=== PATIENT | female | born 1995 | race Caucasian/White ===

== ENCOUNTER 2016-11-12 20:46 | Emergency (ER) | payer MEDICAID ==
[~2016-11-12 20:46] MED LIST: CEPH-460 PO
[2016-11-12] MEDS ORDERED: LACTATED RINGER'S 1000 ML INJ 1,000 ML IV ONE (21:30)
[2016-11-12 22:11] LABS: AUTOMATED NEUTROPHIL # 9.5 TH/MM3 (1.8-7.7); BASOPHIL # 0.1 TH/MM3 (0-0.2); BASOPHIL % 0.4 % (0.0-2.0); EOSINOPHIL # 0.1 TH/MM3 (0-0.4); HEMATOCRIT 26.3 % (35.0-46.0); LYMPH % 18.2 % (9.0-44.0); LYMPHOCYTE # 2.4 TH/MM3 (1.0-4.8); MEAN CELL VOLUME 81.5 FL (80.0-100.0); MEAN CORPUSCULAR HEMOGLOBIN 26.9 PG (27.0-34.0); MEAN CORPUSCULAR HGB CONC 33.1 % (32.0-36.0); MONO % 8.4 % (0.0-8.0); PLATELET COUNT 213 TH/MM3 (150-450); RED BLOOD COUNT 3.22 MIL/MM3 (4.00-5.30); WHITE BLOOD COUNT 13.2 TH/MM3 (4.0-11.0)
[2016-11-12 22:12] LABS: HEMO FLAGS AUTO DIFF
[2016-11-12] MEDS ORDERED: FERR325T PO (22:28)
[2016-11-12 22:31] LABS: BACTERIA, URINE OCC /hpf; BLOOD, URINE NEG (NEG); COMMENT (UR) CULT NOT INDICATED; CULTURE IF INDICATED CULT NOT INDICATED; GLUCOSE,URINE NEG (NEG); KETONE, URINE NEG (NEG); NITRITE,URINE NEG (NEG); PH, URINE 7.5 (5.0-8.5); SQUAMOUS EPITHELIAL CELL URINE 10 /hpf (0-5); URINE COLOR YELLOW (YELLW/STRAW)
[2016-11-12 22:38] LABS: PLATELET ESTIMATE SMEAR NORMAL (NORMAL); PLATELET MORPHOLOGY NORMAL (NORMAL); SCAN/DIFF AUTO DIFF CONFIRMED
--- NOTE | 2016-11-12 22:38 | PD ---
HPI Chief Complaint Viral symptoms with diarrhea Date Seen: Nov 12, 2016 Travel History International Travel<30 Days: No Contact w/Intl Traveler<30Days: No Known Affected Area: No History of Present Illness HPI Ms. Llamas is a 21-year-old at 35/5 presenting to the OB ED with daily episodes of diarrhea and viral symptoms. She states that she saw her PCP, Dr. Franco Krishnamurthy, on 11/10/16, for her routine OB check. At that time a urine dipstick was performed for increased urination and showed leukocyte esterase suggesting possible UTI. Keflex 500 mg twice a day was prescribed, and the patient has been compliant. After starting her medication she's had daily episodes of nonbloody diarrhea. When asked about her oral hydration she believes that she has been very thirsty over these past few days, but has been "drinking 5 gallons a day." She also complains of upper respiratory symptoms with one subjective fever. At her clinic visit on Thursday it was recommended that she used honey for her sore throat and cough. For her subjective fever and mild headache she took Tylenol once, but believes it had minimal effect on her fever. She endorses good movement without loss of fluid, dysuria, discharge, or bleeding. She has no other complaints and denies any chest pain, shortness of breath, NVD, or calf tenderness. 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: [employer] Denies: smoking, drugs Has stopped alcohol Alcohol Use: No Tobacco Use: No Substance Abuse: No Allergies-Medications (Allergen,Severity, Reaction): Coded Allergies: No Known Allergies (Verified , 11/10/16) Home Meds Active Scripts Ferrous Sulfate 325 Mg [id number] Mg PO DAILY #30 TAB Ref 0 Prov:Arnaldo Perez MD R1 11/12/16 Cephalexin (Keflex)500 Mg [id number] Mg PO Q12H #14 CAP Ref 0 Prov:Franco Krishnamurthy MD R2 11/10/16 Discontinued Scripts Cephalexin (Keflex)500 Mg [id number] Mg PO Q12H #14 CAP Ref 0 Prov:Gris Kincaid MD R2 10/12/16 Review of Systems General / Constitutional: Fever (subjective) Eyes: No: Blurred Vision, Visual changes HENT: Headaches (mild) Cardiovascular: No: Chest Pain or Discomfort, Palpitations Respiratory: Cough, No: Short of Breath Gastrointestinal: Diarrhea, Indigestion, No: Nausea, Vomiting Genitourinary: No: Dysuria, Hematuria, Discharge, Vaginal Bleeding Musculoskeletal: Pain (mild low back pain) Skin: No Rash Neurologic: No: Weakness Psychiatric: No: Substance Abuse Endocrine: Polydipsia, Polyuria Hematologic/Lymphatic: No Lymph Node Enlargement Physical Exam Narrative GENERAL: Well-nourished, well-developed patient. SKIN: Warm and dry. HEAD: Normocephalic and atraumatic. EYES: No scleral icterus. No injection or drainage. ENT: No nasal drainage noted. Mucous membranes pink. Airway patent. NECK: Supple, trachea midline. No JVD. CARDIOVASCULAR: Regular rate and rhythm without murmurs, gallops, or rubs. RESPIRATORY: Breath sounds equal bilaterally. No accessory muscle use. BREASTS: Bilateral exam showed no masses , no retractions, no nipple discharge. ABDOMEN/GI: Abdomen soft, non-tender, bowel sounds present, no rebound, no guarding Gravid to 35 weeks size GENITOURINARY: External Genitalia: intact and normal in appearance Cervix: Posterior Dilatation: Posterior Effacement: 0% Station:-3 Membranes: Intact Uterine Contractions: None FHT's: Category: 1 Baseline: 145 Reactive: + Variability: Moderate Decels: 0 EXTREMITIES: No cyanosis or edema. BACK: Nontender without obvious deformity. No CVA tenderness. NEUROLOGICAL: Awake and alert. Motor and sensory grossly within normal limits. Five out of 5 muscle strength in all muscle groups. Normal speech. Data Data Vital Signs Reviewed: Yes Orders Vital Signs (Adult) .ON ADMISSION (11/12/16 21:25) ^ Labor Status (11/12/16 21:25) Urinalysis - C+S If Indicated (11/12/16 21:25) ^ Hydration (11/12/16 21:25) Lactated Ringer's 1000 Ml Inj (Lr 1000 M (11/12/16 21:30) [facility] Medical Record Reviewed: Yes Plan Ms. Llamas is a 21-year-old at 35/5 presenting to the OB ED with daily episodes of diarrhea and viral symptoms 1. IUP at 35w - Continue routine antepartum care - Category 1 tracing, reassuring - Encouraged oral hydration 2. UTI -Patient with positive leukocyte esterase in clinic on 11/10/16 currently being treated with Keflex BID 500mg, Previous UTI treated x1 with Keflex -UA: Large leukocyte esterase, occasional bacteria -CBC order to be completed from clinic orders: WBC 13.2, H/H 8.7/26.3, 213 3. Upper Respiratory Symptoms -Patient with sore throat, mild cough, and one subjective fever since 11/10/16, Tylenol x1; likely viral component -Encouraged oral hydration -Encouraged patient to document possible fevers and use of Tylenol for fevers > 101 4.Non-bloody Diarrhea with Mild Dehydration -Likely related to Keflex administration -Encouraged PO hydration -1L LR bolus given once in OB ED 5. Anemia in -CBC order to be completed from clinic orders: WBC 13.2, H/H 8.7/26.3, 213 -Prescribed Ferrous sulfate 325mg QD Discharge: Patient to be discharged home after fluid hydration. Patient to continue Keflex and follow up with Dr. Krishnamurthy next week in clinic. Patient educated on signs of labor and when to seek further evaluation. SDW: Dr. Celeste DW: Dr. Osorio WDW: Dr. Krishnamurthy Diagnosis Diagnosis: Primary Impression: 35 weeks gestation of Additional Impression: UTI (urinary tract infection) Disposition: 01 DISCHARGE HOME Condition: Stable Scripts Ferrous Sulfate 325 Mg [id number] Mg PO DAILY #30 TAB Ref 0 Prov:Arnaldo Perez MD R1 11/12/16 Referrals: Franco Krishnamurthy MD R2 1 week Arnaldo Perez MD R1 Nov 12, 2016 22:38
== END 2016-11-12 22:45 | disposition home or self-care (01) ==
LOC: HOBED 20:46
DX: O23.43 Unspecified infection of urinary tract in pregnancy, third trimester (principal); Z3A.35 35 weeks gestation of pregnancy
CPT/HCPCS: 59025; 81001; 85025; 96360; 99283; J7120

== ENCOUNTER 2016-11-15 13:55 | Emergency (ER) | payer MEDICAID ==
[~2016-11-15 13:55] MED LIST changes: +FERR325T PO
--- NOTE | 2016-11-15 14:50 | PD ---
HPI Chief Complaint Gush of fluid. Date Seen: Nov 15, 2016 (Gris Kincaid MD R2) Travel History International Travel<30 Days: No Contact w/Intl Traveler<30Days: No Known Affected Area: No (Gris Kincaid MD R2) History of Present Illness HPI Patient is a 21 year old at 36-1/7 weeks gestation who presents today for gush of fluid. Patient states that she had 3 big gushes of clear watery fluid yesterday and has been soaking through pads. She states that there was so much fluid that it leaked through her pants onto the chair. She has been having about 2-3 contractions every hour. No vaginal bleeding. Positive movement. She notes increasing pelvic pressure over the past day. She is currently being treated for a UTI with Keflex. care with Dr. Krishnamurthy. (Gris Kincaid MD R2) History Past Medical History Medical History: Denies Significant Hx (Gris Kincaid MD R2) Obstetric History Obstetric History s/p at term complicated by PIH, shoulder dystocia (Gris Kincaid MD R2) Past Surgical History Narrative Surgical Right arm surgery after fracture (Gris Kincaid MD R2) Family History Narrative Family History Grandmother- Depression (Gris Kincaid MD R2) Social History Alcohol Use: No Tobacco Use: No Substance Abuse: No (Gris Kincaid MD R2) Allergies-Medications (Allergen,Severity, Reaction): Coded Allergies: No Known Allergies (Verified , 11/10/16) Home Meds Active Scripts Ferrous Sulfate 325 Mg [id number] Mg PO DAILY #30 TAB Ref 0 Prov:Arnaldo Perez MD R1 11/12/16 Cephalexin (Keflex)500 Mg [id number] Mg PO Q12H #14 CAP Ref 0 Prov:Franco Krishnamurthy MD R2 11/10/16 Review of Systems Except as stated in HPI: all other systems reviewed are Neg General / Constitutional: No: Fever, Chills Eyes: No: Blurred Vision HENT: No: Headaches Cardiovascular: No: Chest Pain or Discomfort Respiratory: No: Short of Breath Gastrointestinal: No: Nausea, Vomiting, Abdominal Pain Genitourinary: Hematuria (pink urine this AM), Pelvic Pain, Discharge, No: Dysuria, Vaginal Bleeding Musculoskeletal: No: Edema Skin: No Rash Neurologic: No: Headache Psychiatric: No: Substance Abuse (Gris Kincaid MD R2) Physical Exam Narrative GENERAL: Well-nourished, well-developed patient. SKIN: Warm and dry. HEAD: Normocephalic and atraumatic. EYES: No scleral icterus. No injection or drainage. ENT: No nasal drainage noted. Mucous membranes pink. Airway patent. NECK: Supple, trachea midline. No JVD. CARDIOVASCULAR: Regular rate and rhythm without murmurs, gallops, or rubs. RESPIRATORY: Breath sounds equal bilaterally. No accessory muscle use. ABDOMEN/GI: Abdomen soft, non-tender, bowel sounds present, no rebound, no guarding Gravid to 36 weeks size GENITOURINARY: External Genitalia: intact and normal in appearance BUS glands: normal Cervix: posterior Dilatation: 2 Effacement: 0% Station: -3 Presentation: vertex Membranes: intact Uterine Contractions: irregular FHT's: Category: I Baseline: 150 Reactive: + Variability: moderate Decels: none EXTREMITIES: No cyanosis or edema. BACK: Nontender without obvious deformity. No CVA tenderness. NEUROLOGICAL: Awake and alert. Motor and sensory grossly within normal limits. Normal speech. (Gris Kinacid MD R2) Data Data Vital Signs Reviewed: Yes (Gris Kincaid MD R2) MDM Medical Record Reviewed: Yes Narrative Course / MDM Patient is a 21 year old at 36-1/7 weeks gestation. 1. IUP- Category I tracing, reassuring. Continue routine obstetric care. 2. Possible ROM- Amnisure negative, cervical exam 2/0/-3, membrane palpable. 3. Encourage oral hydration. Discharge to home. Follow-up with Dr. Krishnamurthy. dw Dr. Lynn (Gris Kincaid MD R2) Diagnosis Diagnosis: Primary Impression: 36 weeks gestation of Additional Impression: False labor, antepartum Disposition: 01 DISCHARGE HOME Condition: Stable Attestation Patient seen and examined with the resident under direct supervision, I agree with the assessment and plan. (Johnson Lynn MD) Gris Kincaid MD R2 Nov 15, 2016 14:50 Johnson Lynn MD Nov 16, 2016 08:02
== END 2016-11-15 15:12 | disposition home or self-care (01) ==
LOC: HOBED 13:55
DX: O47.03 False labor before 37 completed weeks of gestation, third trimester (principal); Z3A.36 36 weeks gestation of pregnancy
CPT/HCPCS: 84112; 99284

== ENCOUNTER 2016-11-26 02:49 | Inpatient (IN) | payer MEDICAID ==
[2016-11-26] VITALS (8 sets, daily range): BP systolic 112–126; BP diastolic 46–64; PULSE 74–103; RESP 18–20; TEMP 97.8
[~2016-11-26 02:49] MED LIST changes: -CEPH-460 PO
[2016-11-26] MEDS ORDERED: LACTATED RINGER'S 1000 ML INJ 1,000 ML IV ONE (03:30)
[2016-11-26] MEDS ORDERED: SODIUM CHLORIDE 0.9% FLUSH 5 ML FLUSH IVF PRN (03:30)
[2016-11-26 04:19] LABS: BACTERIA, URINE RARE /hpf; BLOOD, URINE NEG (NEG); GLUCOSE,URINE NEG (NEG); KETONE, URINE NEG (NEG); NITRITE,URINE NEG (NEG); SQUAMOUS EPITHELIAL CELL URINE 8 /hpf (0-5); TRANSITIONAL EPI CELLS, URINE <1 /hpf; URINE COLOR LIGHT-YELLOW (YELLW/STRAW)
[2016-11-26 04:24] LABS: COMMENT (UR) CULT NOT INDICATED; CULTURE IF INDICATED CULT NOT INDICATED
--- NOTE | 2016-11-26 04:28 | PD ---
HPI Chief Complaint Contractions Date Seen: Nov 26, 2016 (Arnaldo Perez MD R1) Travel History International Travel<30 Days: No Contact w/Intl Traveler<30Days: No Known Affected Area: No (Arnaldo Perez MD R1) History of Present Illness HPI Ms. Llamas is a 21 y/o at 37/5 presenting with contractions. She states that tonight at approximately 2300 she started experiencing contractions that overtime grew closer together. She endorses good movement with her daily kick counts. She denies any smith of fluid, dysuria, or vaginal bleeding. She has had a thin, yellow/green vaginal discharge over the last 2 days. She has not had intercourse in over 2 months. Earlier today she had one episode of nonbloody diarrhea without ABD complaints. Other jaime she does not have any complaints, and denies any fevers, chills, blurry vision, chest pain, SOB, N/V, or calf tenderness/edema. (Arnaldo Perez MD R1) History Past Medical History Narrative Medical GERD (Arnaldo Perez MD R1) Obstetric History Obstetric History 1 - at term complicated by PIH, delivery complicated by shoulder dystocia ( Arnaldo Perez MD R1) Past Surgical History Narrative Surgical R arm fixation s/p fracture (Arnaldo Perez MD) Family History Narrative Family History Grandmother - depression (Arnaldo Perez MD R1) Social History Narrative Social History Denies any alcohol, tobacco, illicit drugs, herpes, STI, or HIV infection. ( Arnaldo Perez MD R1) Allergies-Medications (Allergen,Severity, Reaction): Coded Allergies: No Known Allergies (Verified , 11/19/16) Home Meds Active Scripts Cephalexin (Keflex)500 Mg Shs232 Mg PO Q12H #14 CAP Ref 0 Prov:Singh Mariano MD R1 11/26/16 Metronidazole (Flagyl)500 Mg [id number] Mg PO BID #14 TAB Ref 0 Prov:Singh Mariano MD R1 11/26/16 Ferrous Sulfate 325 Mg [id number] Mg PO DAILY #30 TAB Ref 0 Prov:Arnaldo Perez MD 11/12/16 Review of Systems General / Constitutional: No: Fever HENT: No: Headaches Cardiovascular: No: Chest Pain or Discomfort Respiratory: No: Cough, Short of Breath Gastrointestinal: Diarrhea, No: Nausea, Vomiting Genitourinary: Discharge, No: Dysuria, Vaginal Bleeding Musculoskeletal: No: Weakness Skin: No Rash Neurologic: No: Weakness Psychiatric: No: Substance Abuse Endocrine: No: Polydipsia Hematologic/Lymphatic: No Lymph Node Enlargement (Arnaldo Perez MD R1) Physical Exam Narrative GENERAL: Well-nourished, well-developed patient. SKIN: Warm and dry. HEAD: Normocephalic and atraumatic. EYES: No scleral icterus. No injection or drainage. ENT: No nasal drainage noted. Mucous membranes pink. Airway patent. NECK: Supple, trachea midline. No JVD. CARDIOVASCULAR: Regular rate and rhythm without murmurs, gallops, or rubs. RESPIRATORY: Breath sounds equal bilaterally. No accessory muscle use. ABDOMEN/GI: Abdomen soft, non-tender, bowel sounds present, no rebound, no guarding Gravid to 37 weeks size GENITOURINARY: External Genitalia: intact and normal in appearance Cervix: Posterior Dilatation: 2cm Effacement: 70% Station: -2 Presentation: Vertex Membranes: Intact Uterine Contractions: Q2m FHT's: Category: 1 Baseline: 150 Reactive: + Variability: Moderate Decels: None Speculum: 2cm dilated cervix. Cervix is erythematous with yellow/green thin discharge coming from the os without signs of hemorrhage. Vaginal vault with similar discharge. EXTREMITIES: No cyanosis or edema. BACK: Nontender without obvious deformity. No CVA tenderness. NEUROLOGICAL: Awake and alert. Motor and sensory grossly within normal limits. Five out of 5 muscle strength in all muscle groups. Normal speech. (Arnaldo Perez MD R1) Data Data Vital Signs Reviewed: Yes Orders Vital Signs (Adult) .ON ADMISSION (11/26/16 03:29) ^ Labor Status (11/26/16 03:29) Urinalysis - C+S If Indicated (11/26/16 03:29) ^ Hydration (11/26/16 03:29) Sodium Chloride 0.9% Flush (Ns Flush) (11/26/16 09:00) Sodium Chloride 0.9% Flush (Ns Flush) (11/26/16 03:30) Lactated Ringer's 1000 Ml Inj (Lr 1000 M (11/26/16 03:30) Wet Prep Profile (11/26/16 03:53) Gc And Chlamydia Pcr (11/26/16 03:53) Group B Beta Strep Scrn (Gbs) (11/26/16 03:53) (Arnaldo Perez MD R1) [facility] Medical Record Reviewed: Yes Plan Ms. Llamas is a 21 y/o at 37/5 presenting with contractions 1. IUP at 37/5 -Continue routine antepartum care -Category 1 tracing, reassuring -Encourage oral hydration -UA: pending 2. Contractions -Contractions every 2 minutes upon admission without rupture of membranes and no cervical dilation compared to prior ER admission -1L LR bolus, contractions have decreased in frequency, intensity, and duration since fluid administration initiated. 3. Discharge -Speculum exam: 2cm dilated cervix, erythematous without signs of hemorrhage. Yellow/green thin discharge in vaginal vault and coming from cervical os. -UA: Pending -Wet prep: Pending -Gonorrhea/Chlamydia: Pending 4. GBS Screen -Patient without prior GBS screen, will send culture to lab, culture obtained prior to speculum exam. DW: Dr. Lynn and Dr. Lopez Update at 0400: Wet Prep: Positive for Clue Cells without yeast or trichomonas. Treat with Flagyl 500mg BID for 7 days. UA: Moderate leukocyte esterase with rare bacteria. Treat with Keflex 500mg BID for 7 days. Gonorrhea/Chlamydia: Negative Contractions have increased to Q2m after initially decreasing in frequency and intensity. On cervical re-examination there was no change after 2 hours of observation. Discussed with Dr. Payan who recommends no further fluid. We will continue to observe her and will re-evaluate for cervical change. Update at 0630: On cervical re-examination, patient has progressed to 3cm dilated. OB team will plan to admit the patient for labor at this time. Orders have been placed. ( Arnaldo Perez MD R1) Diagnosis Diagnosis: Primary Impression: 37 weeks gestation of Additional Impression: Uterine contractions during Scripts Cephalexin (Keflex)500 Mg [id number] Mg PO Q12H #14 CAP Ref 0 Prov:Singh Mariano MD R1 11/26/16 Metronidazole (Flagyl)500 Mg [id number] Mg PO BID #14 TAB Ref 0 Prov:Singh Mariano MD R1 11/26/16 Attestation Patient seen and evaluated with the resident under direct supervision, I agree with the assessment and plan. (Johnson Lynn MD) Arnaldo Perez MD R1 Nov 26, 2016 04:28 Johnson Lynn MD Nov 28, 2016 11:20
[2016-11-26 06:01] LABS: CHLAMYDIA PCR NOT DETECTED (NOT DETECT); NEISSERIA PCR NOT DETECTED (NOT DETECT)
[2016-11-26] MEDS ORDERED: LACTATED RINGER'S 1000 ML INJ 1,000 ML IV PRN (07:11)
[2016-11-26] MEDS ORDERED: LACTATED RINGER'S 1000 ML INJ 1,000 ML IV SCH (07:11)
[2016-11-26] MEDS ORDERED: ONDANSETRON HCL 4 MG/2 ML VIAL IV PRN (07:15)
[2016-11-26] MEDS ORDERED: SODIUM CHLORID 0.9% 500 ML INJ 500 ML IV PRN (07:15)
[2016-11-26] MEDS ORDERED: LIDOCAINE HCL 1% 50 ML VIAL INFIL PRN (07:15)
[2016-11-26] MEDS ORDERED: CITRIC ACID-SODIUM CITRATE LIQ 30 ML UDC PO SCH (07:15)
[2016-11-26] MEDS ORDERED: LIDOCAINE HCL 1% 50 ML VIAL I-DERMAL PRN (07:15)
[2016-11-26] MEDS ORDERED: MINERAL OIL 10 ML VIAL TOPICAL PRN (07:15)
[2016-11-26] MEDS ORDERED: OXYTOCIN 30 UNITS-500ML PREMIX 500 ML IV ONE (07:15)
[2016-11-26] MEDS ORDERED: SODIUM CHLOR 0.9% 1000 ML INJ 1,000 ML IV PRN (07:31)
[2016-11-26 08:50] LABS: AUTOMATED NEUTROPHIL # 13.5 TH/MM3 (1.8-7.7); BASOPHIL # 0.1 TH/MM3 (0-0.2); BASOPHIL % 0.5 % (0.0-2.0); EOSINOPHIL # 0.1 TH/MM3 (0-0.4); EOSINOPHIL % 0.5 % (0.0-4.0); HEMATOCRIT 31.6 % (35.0-46.0); HEMO FLAGS DIFF FINAL; LYMPH % 15.9 % (9.0-44.0); LYMPHOCYTE # 2.7 TH/MM3 (1.0-4.8); MEAN CELL VOLUME 81.8 FL (80.0-100.0); MONO % 4.9 % (0.0-8.0); NEUT % 78.2 % (16.0-70.0); PLATELET COUNT 196 TH/MM3 (150-450); RED BLOOD COUNT 3.86 MIL/MM3 (4.00-5.30); RED CELL DISTRIBUTION WIDTH 15.2 % (11.6-17.2); WHITE BLOOD COUNT 17.2 TH/MM3 (4.0-11.0)
[2016-11-26] MEDS ORDERED: SODIUM CHLORIDE 0.9% FLUSH 5 ML FLUSH IVF SCH (09:00)
[2016-11-26] MEDS ORDERED: metroNIDAZOLE 500 MG TAB PO SCH (09:00)
--- NOTE | 2016-11-26 10:12 | HHI.HP ---
History & Physical H&P HPI Chief Complaint Contractions Date Seen: Nov 26, 2016 Travel History International Travel<30 Days: No Contact w/Intl Traveler<30Days: No Known Affected Area: No History of Present Illness HPI Ms. Llamas is a 21 y/o at 37/5 presenting with contractions. She states that tonight at approximately 2300 she started experiencing contractions that overtime grew closer together. She endorses good movement with her daily kick counts. She denies any smith of fluid, dysuria, or vaginal bleeding. She has had a thin, yellow/green vaginal discharge over the last 2 days. She has not had intercourse in over 2 months. Earlier today she had one episode of nonbloody diarrhea without ABD complaints. Other jaime she does not have any complaints, and denies any fevers, chills, blurry vision, chest pain, SOB, N/V, or calf tenderness/edema. History (Limited) History Past Medical History Narrative Medical GERD Obstetric History Obstetric History 1 - at term complicated by PIH, delivery complicated by shoulder dystocia Past Surgical History Narrative Surgical R arm fixation s/p fracture Family History Narrative Family History Grandmother - depression Social History Narrative Social History Denies any alcohol, tobacco, illicit drugs, herpes, STI, or HIV infection. Allergies-Medications Allergies-Medications (Allergen,Severity, Reaction): Coded Allergies: No Known Allergies (Verified , 11/19/16) Home Meds Active Scripts Ferrous Sulfate 325 Mg [id number] Mg PO DAILY #30 TAB Ref 0 Prov:Arnaldo Perez MD R1 11/12/16 Discontinued Scripts Cephalexin (Keflex)500 Mg Rqi192 Mg PO Q12H #14 CAP Ref 0 Prov:Franco Krishnamurthy MD R2 11/10/16 ROS Review of Systems General / Constitutional: No: Fever HENT: No: Headaches Cardiovascular: No: Chest Pain or Discomfort Respiratory: No: Cough, Short of Breath Gastrointestinal: Diarrhea, No: Nausea, Vomiting Genitourinary: Discharge, No: Dysuria, Vaginal Bleeding Musculoskeletal: No: Weakness Skin: No Rash Neurologic: No: Weakness Psychiatric: No: Substance Abuse Endocrine: No: Polydipsia Hematologic/Lymphatic: No Lymph Node Enlargement Physical Exam Physical Exam Narrative GENERAL: Well-nourished, well-developed patient. SKIN: Warm and dry. HEAD: Normocephalic and atraumatic. EYES: No scleral icterus. No injection or drainage. ENT: No nasal drainage noted. Mucous membranes pink. Airway patent. NECK: Supple, trachea midline. No JVD. CARDIOVASCULAR: Regular rate and rhythm without murmurs, gallops, or rubs. RESPIRATORY: Breath sounds equal bilaterally. No accessory muscle use. ABDOMEN/GI: Abdomen soft, non-tender, bowel sounds present, no rebound, no guarding Gravid to 37 weeks size GENITOURINARY: External Genitalia: intact and normal in appearance Cervix: Posterior Dilatation: 2cm Effacement: 70% Station: -2 Presentation: Vertex Membranes: Intact Uterine Contractions: Q2m FHT's: Category: 1 Baseline: 150 Reactive: + Variability: Moderate Decels: None Speculum: 2cm dilated cervix. Cervix is erythematous with yellow/green thin discharge coming from the os without signs of hemorrhage. Vaginal vault with similar discharge. EXTREMITIES: No cyanosis or edema. BACK: Nontender without obvious deformity. No CVA tenderness. NEUROLOGICAL: Awake and alert. Motor and sensory grossly within normal limits. Five out of 5 muscle strength in all muscle groups. Normal speech. Data Data Data Vital Signs Reviewed: Yes Orders Vital Signs (Adult) .ON ADMISSION (11/26/16 03:29) ^ Labor Status (11/26/16 03:29) Urinalysis - C+S If Indicated (11/26/16 03:29) ^ Hydration (11/26/16 03:29) Sodium Chloride 0.9% Flush (Ns Flush) (11/26/16 09:00) Sodium Chloride 0.9% Flush (Ns Flush) (11/26/16 03:30) Lactated Ringer's 1000 Ml Inj (Lr 1000 M (11/26/16 03:30) Wet Prep Profile (11/26/16 03:53) Gc And Chlamydia Pcr (11/26/16 03:53) Group B Beta Strep Scrn (Gbs) (11/26/16 03:53) MDM MDM Medical Record Reviewed: Yes Plan Ms. Llamas is a 21 y/o at 37/5 presenting with contractions 1. IUP at 37/5 -Continue routine antepartum care -Category 1 tracing, reassuring -Encourage oral hydration -UA: pending 2. Contractions -Contractions every 2 minutes upon admission without rupture of membranes and no cervical dilation compared to prior ER admission -1L LR bolus, contractions have decreased in frequency, intensity, and duration since fluid administration initiated. 3. Discharge -Speculum exam: 2cm dilated cervix, erythematous without signs of hemorrhage. Yellow/green thin discharge in vaginal vault and coming from cervical os. -UA: Pending -Wet prep: Pending -Gonorrhea/Chlamydia: Pending 4. GBS Screen -Patient without prior GBS screen, will send culture to lab, culture obtained prior to speculum exam. DW: Dr. Lynn and Dr. Lopez Update at 0400: Wet Prep: Positive for Clue Cells without yeast or trichomonas. Treat with Flagyl 500mg BID for 7 days. UA: Moderate leukocyte esterase with rare bacteria. Treat with Keflex 500mg BID for 7 days. Gonorrhea/Chlamydia: Negative Contractions have increased to Q2m after initially decreasing in frequency and intensity. On cervical re-examination there was no change after 2 hours of observation. Discussed with Dr. Payan who recommends no further fluid. We will continue to observe her and will re-evaluate for cervical change. Update at 0630: On cervical re-examination, patient has progressed to 3cm dilated. OB team will plan to admit the patient for labor at this time. Orders have been placed. Diagnosis Diagnosis: Primary Impression: 37 weeks gestation of Additional Impression: Uterine contractions during (Arnaldo Perez MD R1) Attestation Patient seen and examined with the resident under direct supervision and I agree with the assessment and plan. (Johnson Lynn MD) Arnaldo Perez MD R1 Nov 26, 2016 10:12 Johnson Lynn MD Nov 28, 2016 11:31
--- NOTE | 2016-11-26 15:01 | PD.OB.ANTE ---
Subjective Interval History Patient lying in bed. Feeling contractions. Some pain with contractions and some nausea. Cervical check: /-2 Antepartum ROS: Reports: movement normal, Contractions, Denies: New complaints, Loss of fluid, Vaginal bleeding, Other (Singh Mariano MD R1) Objective Vital Signs Vital Signs Date Time Temp Pulse Resp B/P Pulse Ox O2 Delivery O2 Flow Rate FiO2 11/26/16 13:30 74 112/46 11/26/16 13:00 76 117/55 11/26/16 12:44 103 126/49 11/26/16 12:21 90 118/63 11/26/16 08:56 97.8 11/26/16 05:30 18 11/26/16 05:25 86 119/64 11/26/16 05:00 20 Lab & Micro Results Test 11/26/16 11/26/16 11/26/16 03:20 03:50 08:00 Urine Color LIGHT-YELLOW Urine Turbidity HAZY Urine pH 7.0 Urine Specific [place] 1.010 Urine Protein NEG mg/dL Urine Glucose (UA) NEG mg/dL Urine Ketones NEG mg/dL Urine Occult Blood NEG Urine Nitrite NEG Urine Bilirubin NEG Urine Urobilinogen LESS THAN 2.0 MG/DL Urine Leukocyte Esterase MOD Urine RBC LESS THAN 1 /hpf Urine WBC 3 /hpf Urine Squamous Epithelial 8 /hpf Cells Urine Transitional Epithelial <1 /hpf Cells Urine Amorphous Sediment RARE Urine Bacteria RARE /hpf Microscopic Urinalysis Comment CULT NOT INDICATED Chlamydia trachomatis DNA NOT DETECTED (PCR) Neisseria gonorrhoeae DNA NOT DETECTED (PCR) Clue Cells (Wet Prep) PRESENT Vaginal Trichomonas (Wet Prep) NONE SEEN Vaginal Yeast (Wet Prep) NONE SEEN White Blood Count 17.2 TH/MM3 Red Blood Count 3.86 MIL/MM3 Hemoglobin 10.4 GM/DL Hematocrit 31.6 % Mean Corpuscular Volume 81.8 FL Mean Corpuscular Hemoglobin 27.0 PG Mean Corpuscular Hemoglobin 33.0 % Concent Red Cell Distribution Width 15.2 % Platelet Count 196 TH/MM3 Mean Platelet Volume 8.3 FL Neutrophils (%) (Auto) 78.2 % Lymphocytes (%) (Auto) 15.9 % Monocytes (%) (Auto) 4.9 % Eosinophils (%) (Auto) 0.5 % Basophils (%) (Auto) 0.5 % Neutrophils # (Auto) 13.5 TH/MM3 Lymphocytes # (Auto) 2.7 TH/MM3 Monocytes # (Auto) 0.8 TH/MM3 Eosinophils # (Auto) 0.1 TH/MM3 Basophils # (Auto) 0.1 TH/MM3 CBC Comment DIFF FINAL Differential Comment Blood Type A NEGATIVE Antibody Screen NEGATIVE Band and Hold Date/Time Procedure Status Source Growth 11/26/16 03:50 Cancelled Genital Vaginal Physical Exam GENERAL: Well-nourished, well-developed patient. CARDIOVASCULAR: Regular rate and rhythm without murmurs, gallops, or rubs. RESPIRATORY: Breath sounds equal bilaterally. No accessory muscle use. ABDOMEN/GI: Abdomen soft, non-tender. Gravid to 37w GENITOURINARY: External Genitalia: intact and normal in appearance Dilatation: 3 Effacement: 80 Station: -2 Presentation: vertex Membranes: intact Uterine Contractions: q5-7 minutes FHT's: Category: 1 Baseline: 140 Reactive: yes Variability: moderate Decels: none EXTREMITIES: No cyanosis or edema, non-tender, without signs of DVT. (Singh Mairano MD R1) Assessment and Plan Assessment and Plan 21 y/o at 37/5 Category 1 FHT, reassuring Cervical check 80/-2, unchanged 1. IUP at 37/5 -Continue routine antepartum care -Category 1 tracing, reassuring -Encourage oral hydration -GBS pending 2. UTI - UA + for moderate LE, rare bacteria, and 3 WBC - Urine culture pending - Script for Keflex 500mg BID x7 days 3. BV - Wet prep positive for clue cells - Script for Flagyl 500mg BID x7 days Discharge home and follow-up with OB, Dr. Krishnamurthy. Return to ED if signs of labor. (Singh Mariano MD R1) Assessment and Plan Patient seen and examined. Agree with resident's plan. All questions answered for patient. (Cat Staley MD) Singh Mariano MD R1 Nov 26, 2016 15:01 Cat Staley MD Nov 26, 2016 16:21 Singh Mariano MD R1 Nov 26, 2016 15:01
[2016-11-26] MEDS ORDERED: METR-1 PO (15:03)
[2016-11-26] MEDS ORDERED: CEPH-460 PO (15:03)
--- NOTE | 2016-11-26 15:04 | HHI.DCPOC ---
Discharge Care Plan Diagnosis: (1) 37 weeks gestation of (2) Uterine contractions during (3) False labor, antepartum Goals to Promote Your Health * To prevent worsening of your condition and complications * To maintain your health at the optimal level Directions to Meet Your Goals Take your medications as prescribed Follow your dietary instruction Follow activity as directed Keep your appointments as scheduled Take your immunizations and boosters as scheduled If your symptoms worsen call your PCP, if no PCP go to Urgent Care Center or Emergency Room Smoking is Dangerous to Your Health. Avoid second hand smoke Call the 24-hour hour crisis hotline for domestic abuse at Singh Mariano MD R1 Nov 26, 2016 15:04
== END 2016-11-26 15:59 | disposition home or self-care (01) | DRG 781 ==
LOC: HOBED 02:49 → H2EA 07:37
PROVIDERS: ADMIT Obstetrics & Gynecology; ATTEND Obstetrics & Gynecology
DX: O23.43 Unspecified infection of urinary tract in pregnancy, third trimester (principal); K21.9 Gastro-esophageal reflux disease without esophagitis; O99.613 Diseases of the digestive system complicating pregnancy, third trimester; O62.8 Other abnormalities of forces of labor; Z3A.37 37 weeks gestation of pregnancy
CPT/HCPCS: 81001; 85025; 86850; 86900; 86901; 87081; 87086; 87150; 87210; 87491; 87591; 96360; 96361; J3010; J7120

== ENCOUNTER 2016-12-10 11:25 | Inpatient (IN) | payer MEDICAID ==
[2016-12-10] VITALS (46 sets, daily range): BP systolic 69–132; BP diastolic 30–106; PULSE 82–213; RESP 16–20; TEMP 97.8–98.7
[~2016-12-10 11:25] MED LIST changes: +CEPH-460 PO; +METR-1 PO
--- NOTE | 2016-12-10 12:32 | PD ---
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 Nausea/vomiting associated with eating- most recently salad and banana. Pt reports hematuria with dime sized blood clots this AM. Of note she refuses to get the flu shot. Offered and declined. Para: 1 : 2 Miscarriage: 0 : 0 (Anna Bernabe MD R1) History Past Medical History Narrative Medical No history of pre-eclampsia (pt reported, per OBGYN "concern" to develop, no clinical syndrome or tx with Mg or antihypertensives) Obesity 30-34.9 Anemia (Anna Bernabe MD R1) Obstetric History Obstetric History Induced vaginal delivery at 40 weeks (Anna Bernabe MD R1) Past Surgical History Narrative Surgical Remote R elbow surgery involving pin placement (Anna Bernabe MD R1) Family History Narrative Family History Per EMR (Anna Bernabe MD R1) Social History Narrative Social History Student Alcohol Use: No Tobacco Use: No Substance Abuse: No (Anna Bernabe MD R1) Allergies-Medications (Allergen,Severity, Reaction): Coded Allergies: No Known Allergies (Verified , 12/04/16) Home Meds Active Scripts Ferrous Sulfate 325 Mg [id number] Mg PO DAILY #30 TAB Ref 0 Prov:Arnaldo Perez MD R1 11/12/16 Discontinued Scripts Cephalexin (Keflex)500 Mg Gor038 Mg PO Q12H #14 CAP Ref 0 Prov:Singh Mariano MD R1 11/26/16 Metronidazole (Flagyl)500 Mg [id number] Mg PO BID #14 TAB Ref 0 Prov:Singh Mariano MD R1 11/26/16 Review of Systems Except as stated in HPI: all other systems reviewed are Neg (Anna Bernabe MD R1) Physical Exam Narrative CONST: Adult gravid female in no acute distress. : External Genitalia: intact and normal in appearance. Cervix: soft Dilatation: 6cm Effacement: 70 Station: -1 Presentation: vertex Membranes: intact Uterine Contractions: none FHT's: Category: 1 Baseline: 145 Reactive: Yes Variability: Moderate Decels: No DERM: Warm and dry. HEENT: PERRL. EOMI. Mucous membrane moist. CV: Regular rate and rhythm. No murmurs. RESP: Breathing well on room air. GI: Abdomen soft, non-tender MSK:No peripheral edema BACK: Nontender without obvious deformity NEUROL: Motor and sensory grossly within normal limits (Anna Bernabe MD R1) Data Data Vital Signs Reviewed: Yes Orders Vital Signs (Adult) .ON ADMISSION (12/10/16 12:18) ^ Labor Status (12/10/16 12:18) ^ Hydration (12/10/16 12:18) (Anna Bernabe MD R1) [facility] Medical Record Reviewed: Yes Plan 21 year-old at 39/5 who presents in active labor, with cervical exam /-1. 1. Intrauterine -Admit inpatient in active labor -Continue supportive care- IVF, pain control with fentanyl IV, liquid diet, OOB ad moy -GBS(-) 11/26/16 -Pt would like epidural 2. Nausea/Vomiting -Ondansetron 4mg IV q6h PRN nausea/vomiting 3. Anemia -Continue iron supplementation 4. Obesity BMI 30-34.9 -Follow up outpatient for dietary and exercise counseling SDW: Dr. Staley DW: Dr Krishnamurthy (Anna Bernabe MD R1) Plan Patient seen and evaluated. Agree with resident's assessment/plan. (Cat Staley MD) Anna Bernabe MD R1 Dec 10, 2016 12:32 Cat Staley MD Dec 10, 2016 15:54
[2016-12-10] MEDS ORDERED: SODIUM CHLORID 0.9% 500 ML INJ 500 ML IV PRN (12:45)
[2016-12-10] MEDS ORDERED: MINERAL OIL 10 ML VIAL TOPICAL PRN (12:45)
[2016-12-10] MEDS ORDERED: LIDOCAINE HCL 1% 50 ML VIAL INFIL PRN (12:45)
[2016-12-10] MEDS ORDERED: ONDANSETRON HCL 4 MG/2 ML VIAL IV PRN (12:45)
[2016-12-10] MEDS ORDERED: LIDOCAINE HCL 1% 50 ML VIAL I-DERMAL PRN (12:45)
[2016-12-10] MEDS ORDERED: SODIUM CHLOR 0.9% 1000 ML INJ 1,000 ML IV PRN (12:52)
[2016-12-10] MEDS ORDERED: OXYTOCIN 30 UNITS-500ML PREMIX 500 ML IV ONE (13:00)
[2016-12-10] MEDS ORDERED: LACTATED RINGER'S 1000 ML INJ 1,000 ML IV SCH (13:00)
--- NOTE | 2016-12-10 13:01 | HHI.HP ---
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 Nausea/vomiting associated with eating- most recently salad and banana. Pt reports hematuria with dime sized blood clots this AM. Of note she refuses to get the flu shot. Offered and declined. Para: 1 : 2 Miscarriage: 0 : 0 History (Limited) History Past Medical History Narrative Medical No history of pre-eclampsia (pt reported, per OBGYN "concern" to develop, no clinical syndrome or tx with Mg or antihypertensives) Obesity 30-34.9 Anemia Obstetric History Obstetric History Induced vaginal delivery at 40 weeks Past Surgical History Narrative Surgical Remote R elbow surgery involving pin placement Family History Narrative Family History Per EMR Social History Narrative Social History Student Alcohol Use: No Tobacco Use: No Substance Abuse: No Allergies-Medications Allergies-Medications (Allergen,Severity, Reaction): Coded Allergies: No Known Allergies (Verified , 12/04/16) Home Meds Active Scripts Ferrous Sulfate 325 Mg Pwb199 Mg PO DAILY #30 TAB Ref 0 Prov:Arnaldo Perez MD R1 11/12/16 Discontinued Scripts Cephalexin (Keflex)500 Mg Byn408 Mg PO Q12H #14 CAP Ref 0 Prov:Singh Mariano MD R1 11/26/16 Metronidazole (Flagyl)500 Mg [id number] Mg PO BID #14 TAB Ref 0 Prov:Singh Mariano MD R1 11/26/16 ROS Review of Systems Except as stated in HPI: all other systems reviewed are Neg Physical Exam Physical Exam Narrative CONST: Adult gravid female in no acute distress. : External Genitalia: intact and normal in appearance. Cervix: soft Dilatation: 6cm Effacement: 70 Station: -1 Presentation: vertex Membranes: intact Uterine Contractions: none FHT's: Category: 1 Baseline: 145 Reactive: Yes Variability: Moderate Decels: No DERM: Warm and dry. HEENT: PERRL. EOMI. Mucous membrane moist. CV: Regular rate and rhythm. No murmurs. RESP: Breathing well on room air. GI: Abdomen soft, non-tender MSK:No peripheral edema BACK: Nontender without obvious deformity NEUROL: Motor and sensory grossly within normal limits Data Data Data Vital Signs Reviewed: Yes Vital Signs (Adult) .ON ADMISSION (12/10/16 12:18) ^ Labor Status (12/10/16 12:18) ^ Hydration (12/10/16 12:18) Ob (2e) Additional Admit Info (12/10/16 12:30) Admit To Inpatient (12/10/16 ) Code Status (12/10/16 12:32) Vital Signs (Adult) .Per protocol (12/10/16 12:32) Activity Oob Ad Trish (12/10/16 12:32) ^ Heart (12/10/16 12:32) ^ Amnioinfusion (12/10/16 12:32) Urinary Catheter Management .ONCE (12/10/16 12:32) Diet Liquid (12/10/16 Lunch) Lactated Ringer's 1000 Ml Inj (Lr 1000 M (12/10/16 13:00) Lactated Ringer's 1000 Ml Inj (Lr 1000 M (12/10/16 12:32) Sodium Chlorid 0.9% 500 Ml Inj (Ns 500 M (12/10/16 12:45) Sodium Chlor 0.9% 1000 Ml Inj (Ns 1000 M (12/10/16 12:52) Lidocaine 1% Inj (50 Ml) (Xylocaine 1% I (12/10/16 12:45) Citric Acid-Sodium Citrate Liq (Bicitra (12/10/16 12:45) Ondansetron Inj (Zofran Inj) (12/10/16 12:45) Fentanyl Inj (Fentanyl Inj) (12/10/16 12:45) Fentanyl Inj (Fentanyl Inj) (12/10/16 12:45) Complete Blood Count With Diff (12/10/16 12:32) Hold Clot (12/10/16 12:32) Abo/Rh Blood Type (12/10/16 12:32) Urinalysis - C+S If Indicated (12/10/16 12:32) Resp Oxygen Non Rebreathe Mask (12/10/16 ) ^ Epidural / Intrathecal Infus (12/10/16 12:32) Oxytocin 30 Units-500ml Premix (Pitocin (12/10/16 13:00) Lidocaine 1% Inj (50 Ml) (Xylocaine 1% I (12/10/16 12:45) Light Mineral Oil (Muri-Lube Oil) (12/10/16 12:45) Inpatient Certification (12/10/16 ) MDM MDM Medical Record Reviewed: Yes Plan 21 year-old at 39/5 who presents in active labor, with cervical exam /1. 1. Intrauterine -Admit inpatient in active labor -Continue supportive care- IVF, pain control with fentanyl IV, liquid diet, OOB ad trish -GBS(-) 11/26/16 -Pt requesting epidural 2. Nausea/Vomiting -Ondansetron 4mg IV q6h PRN nausea/vomiting -CMP pending- ordered to assess electrolytes and LFTs in light of muddy history of possible pre-eclampsia. B/P now and in clinic wnl. 3. Hematuria -U/A pending, looks hemoconcentrated 4. Anemia -Continue iron supplementation -Will repeat CBC no diff 5. Obesity BMI 30-34.9 -Follow up outpatient for dietary and exercise counseling SDW: Dr. Staley DW: Dr Krishnamurthy (Anna Bernabe MD R1) H&P Patient seen/evaluated. Agree with resident assessment/plan. (Cat Staley MD) Anna Bernabe MD R1 Dec 10, 2016 13:00 Cat Staley MD Dec 10, 2016 15:55
[2016-12-10 13:16] LABS: AUTOMATED NEUTROPHIL # 8.6 TH/MM3 (1.8-7.7); BASOPHIL # 0.1 TH/MM3 (0-0.2); BASOPHIL % 0.5 % (0.0-2.0); EOSINOPHIL % 0.4 % (0.0-4.0); HEMATOCRIT 33.2 % (35.0-46.0); HEMO FLAGS DIFF FINAL; LYMPHOCYTE # 1.4 TH/MM3 (1.0-4.8); MEAN CELL VOLUME 82.4 FL (80.0-100.0); MEAN CORPUSCULAR HEMOGLOBIN 27.7 PG (27.0-34.0); MEAN CORPUSCULAR HGB CONC 33.6 % (32.0-36.0); MONO % 8.3 % (0.0-8.0); NEUT % 77.8 % (16.0-70.0); PLATELET COUNT 145 TH/MM3 (150-450); RED BLOOD COUNT 4.03 MIL/MM3 (4.00-5.30); RED CELL DISTRIBUTION WIDTH 18.4 % (11.6-17.2); WHITE BLOOD COUNT 11.1 TH/MM3 (4.0-11.0)
[2016-12-10 13:22] LABS: BLOOD, URINE TRACE (NEG); GLUCOSE,URINE NEG (NEG); KETONE, URINE 80 mg/dL (NEG); MUCUS URINE FEW /lpf (OCC); NITRITE,URINE NEG (NEG); PH, URINE 6.5 (5.0-8.5); SQUAMOUS EPITHELIAL CELL URINE 22 /hpf (0-5); TRANSITIONAL EPI CELLS, URINE <1 /hpf; URINE COLOR YELLOW (YELLW/STRAW)
[2016-12-10 13:25] LABS: COMMENT (UR) CULT NOT INDICATED; CULTURE IF INDICATED CULT NOT INDICATED
[2016-12-10] MEDS ORDERED: fentaNYL 2MCG-BUPIV 0.125% INJ 100 ML ONE (13:57)
[2016-12-10] MEDS ORDERED: ePHEDrine/NS 25 MG/5 ML SYR ONE (13:58)
[2016-12-10] MEDS: LACTATED RINGER'S 1000 ML INJ 1,000 ML IV PRN ×2 (14:08→16:20)
[2016-12-10 14:42] LABS: ALT (GPT) 18 U/L (10-53); ANION GAP 10 MEQ/L (5-15); AST (GOT) 24 U/L (15-37); BICARBONATE 22.6 MEQ/L (21.0-32.0); BLOOD UREA NITROGEN 8 MG/DL (7-18); CHLORIDE 104 MEQ/L (98-107); GLOMERULAR FILTRATION RATE 98 ML/MIN (>89); POTASSIUM 4.2 MEQ/L (3.5-5.1); SODIUM (NA) 137 MEQ/L (136-145)
--- NOTE | 2016-12-10 14:43 | PD.LABORPN ---
Subjective Subjective Patient seen and examined. Doing well admits to having contractions. When the contractions occur her pain is an 8 out of 10. Informed her that I will be attempting an AROM she agrees to this, the attempt was made and it was successful. Objective Vital Signs Vital Signs Date Time Temp Pulse Resp B/P Pulse Ox O2 Delivery O2 Flow Rate FiO2 12/10/16 12:20 114 Objective Pelvic Exam: Cervix: Soft Dilatation: 6 Effacement: 80% Station: Vertex Presentation: -2 Membranes: AROM Uterine Contractions: Every 2-6 minutes FHT's: Category: 1 Baseline: 140 Reactive: Up to 155 Variability: Moderate Decels: None Assessment/Plan Problem List: (1) Uterine contractions during (2) Intrauterine (3) 39 weeks gestation of Assessment and Plan 21 year-old at 39/5 who currently is in active labor 1. Intrauterine : Laboring, GBS negative, AROM -Continue expectant management -Continuous heart tracing: Category 1 -Continuous monitoring contractions: Every 2-6 minutes -AROM performed and successful: Clear fluid -Started Pitocin -Pt requesting epidural 2. Nausea/Vomiting -Ondansetron 4mg IV q6h PRN nausea/vomiting -CMP pending- ordered to assess electrolytes and LFTs in light of muddy history of possible pre-eclampsia. B/P now and in clinic wnl. 3. Hematuria -U/A pending, looks hemoconcentrated 4. Anemia -Continue iron supplementation -Will repeat CBC no diff Franco Krishnamurthy MD R2 Dec 10, 2016 14:43
[2016-12-10 14:45] LABS: ALKALINE PHOSPHATASE 208 U/L (45-117); TOTAL BILIRUBIN ADULT 0.5 MG/DL (0.2-1.0)
[2016-12-10] MEDS ORDERED: OXYTOCIN 30 UNITS-500ML PREMIX 500 ML IV SCH (15:00)
[2016-12-10] MEDS ORDERED: NO SYSTEM NARCOTICS XX PRN (16:15)
[2016-12-10] MEDS ORDERED: DO NOT ADMINISTER ANTICOAGULANTS XX PRN (16:15)
[2016-12-10] MEDS ORDERED: ePHEDrine/NS 50 MG/5 ML SYR IV PRN (16:15)
[2016-12-10] MEDS ORDERED: fentaNYL 2MCG-BUPIV 0.125% INJ 100 ML EPIDURAL SCH (16:15)
[2016-12-10] MEDS: CITRIC ACID-SODIUM CITRATE LIQ 30 ML UDC PO SCH ×2 (16:31→18:24)
--- NOTE | 2016-12-10 19:26 | PD.LABORPN ---
Subjective Subjective Patient seen and examined. Having some variable D-cells. Improved with positioning. Baby is progressing at this time. Mother reports that epidural is working fine and has no complaints at this time. (Franco Krishnamurthy MD R2) Objective Vital Signs Vital Signs Date Time Temp Pulse Resp B/P Pulse Ox O2 Delivery O2 Flow Rate FiO2 12/10/16 17:39 98.0 18 12/10/16 17:30 99/46 12/10/16 17:30 91 12/10/16 17:05 104 12/10/16 17:01 106 99/39 12/10/16 17:00 105 12/10/16 17:00 16 12/10/16 16:40 101 12/10/16 16:35 106 12/10/16 16:31 101 117/65 12/10/16 16:30 104 12/10/16 16:27 20 12/10/16 16:25 96 12/10/16 16:21 24 12/10/16 16:20 101 12/10/16 16:19 95 99/49 12/10/16 16:15 108 12/10/16 16:15 18 12/10/16 16:10 83 12/10/16 16:09 82 99/47 12/10/16 16:05 89 12/10/16 16:01 121 69/30 12/10/16 16:00 96 12/10/16 15:54 20 12/10/16 15:54 97.9 12/10/16 15:50 93 101/53 12/10/16 15:45 88 99/58 12/10/16 15:45 93 12/10/16 15:40 104 87/64 12/10/16 15:40 88 12/10/16 15:35 91 12/10/16 15:35 93 111/60 12/10/16 15:30 103 114/56 12/10/16 15:30 96 12/10/16 15:25 96 105/60 12/10/16 15:25 102 12/10/16 15:20 99 12/10/16 15:20 103 108/58 12/10/16 15:15 100 12/10/16 15:15 102 108/58 12/10/16 15:12 109 101/53 12/10/16 15:10 105 12/10/16 15:09 105 114/56 12/10/16 15:05 105 122/70 12/10/16 15:05 105 12/10/16 15:00 107 12/10/16 14:55 101 12/10/16 14:43 93 121/76 12/10/16 12:20 114 Objective Pelvic Exam: Cervix: Soft Dilatation: 89 Effacement: 100% Station: 0 Presentation: Head down Membranes: AROM Uterine Contractions: 1-2 minutes FHT's: Category: 2 Baseline: 142 Reactive: Up to 155 Variability: Moderate Decels: Variables (Franco Krishnamurthy MD R2) Assessment/Plan Problem List: (1) Uterine contractions during (2) Intrauterine (3) 39 weeks gestation of Assessment and Plan 21 year-old at 39/5 who currently is in active labor 1. Intrauterine : Laboring, GBS negative, AROM -Continue expectant management -Continuous heart tracing: Category 2, variable decls, improved with moving patient -Continuous monitoring contractions: Every 1-2 minutes -Continue Pitocin -Epidural in place working well 2. Nausea/Vomiting -Ondansetron 4mg IV q6h PRN nausea/vomiting -CMP within normal limits 3. Hematuria -U/A: Trace protein, trace blood, culture is not indicated 4. Anemia -Continue iron supplementation -Current hemoglobin/hematocrit 11.2/33.2 WDW: Dr. Staley (Franco Krishnamurthy MD R2) Assessment and Plan Patient seen and examined. Cervix 8-9/100/0. Agree with resident plan. (Cat Staley MD) Franco Krishnamurthy MD R2 Dec 10, 2016 19:26 Cat Staley MD Dec 10, 2016 19:38
[2016-12-10] MEDS ORDERED: diphenhydrAMINE HCL 50 MG/ML VIAL IM PRN (19:30)
[2016-12-10] MEDS ORDERED: diphenhydrAMINE HCL 50 MG/ML VIAL IV PRN (23:30)
[2016-12-10] MEDS ORDERED: LIDOCAINE HCL 1.5% PF SOLN 20 ML AMP ONE (23:40)
[2016-12-11] VITALS (39 sets, daily range): BP systolic 89–154; BP diastolic 21–87; PULSE 74–138; RESP 18–20; TEMP 98–100.6; O2SAT 98–99
--- NOTE | 2016-12-11 01:28 | PD.LABORPN ---
Subjective Subjective Patient seen and examined. She is getting tired of pushing and is currently requiring a brake. She was having severe pain in the left hip from pushing and the baby's position. The Epideral has been replaced in hopes to improve pain control. Patient will reattempt pushing soon. She has been explained that if she has failure to progress she may require a . She understands and agrees to the plan of care. (Franco Krishnamurthy MD R2) Objective Vital Signs Vital Signs Date Time Temp Pulse Resp B/P Pulse Ox O2 Delivery O2 Flow Rate FiO2 12/11/16 00:55 130 12/11/16 00:55 129 148/69 12/11/16 00:51 135 132/44 12/11/16 00:50 127 12/11/16 00:49 138 154/85 12/11/16 00:45 126 139/77 12/11/16 00:30 131 125/73 12/11/16 00:15 115 116/70 12/11/16 00:12 130 121/62 12/11/16 00:01 74 89/21 12/11/16 00:00 98.7 12/11/16 00:00 98.7 12/10/16 23:31 213 132/106 12/10/16 22:30 100 112/69 12/10/16 22:01 101 103/48 12/10/16 21:45 98.7 12/10/16 21:30 100 123/70 12/10/16 21:00 104 115/61 12/10/16 20:31 87 99/39 12/10/16 20:00 94 119/67 12/10/16 19:30 97.8 18 12/10/16 19:30 90 117/80 12/10/16 19:00 102 117/64 12/10/16 17:39 98.0 18 12/10/16 17:30 99/46 12/10/16 17:30 91 Objective Pelvic Exam: Cervix: Soft Dilatation: 10 Effacement: 100 Station: 0 Presentation: OP vertex Membranes: AROM Uterine Contractions: every 2 min FHT's: Category: 1 Baseline: 150 Reactive: up to 170 Variability: moderate Decels: none (Franco Krishnamurthy MD R2) Assessment/Plan Problem List: (1) Uterine contractions during (2) Intrauterine (3) 39 weeks gestation of Assessment and Plan 21 year-old at 39/5 who currently is in active labor 1. Intrauterine : Laboring, GBS negative, AROM -Continue expectant management -Continuous heart tracing: Category 1 -Continuous monitoring contractions: Every 1-2 minutes -Continue Pitocin -Epidural recently replaced -Explained to patient that may be required due to possible failure to progress and importance for patient to push with all her strength 2. Nausea/Vomiting/Itch -Ondansetron 4mg IV q6h PRN nausea/vomiting -Benadryl for the Itch -CMP within normal limits 3. Hematuria -U/A: Trace protein, trace blood, culture is not indicated 4. Anemia -Continue iron supplementation -Current hemoglobin/hematocrit 11.2/33.2 (Franco Krishnamurthy MD R2) Assessment and Plan Patient seen and evaluated at bedside. To begin another trial of pushing. ( Cat Staley MD) Franco Krishnamurthy MD R2 Dec 11, 2016 01:28 Cat Staley MD Dec 11, 2016 02:11
[2016-12-11] MEDS ORDERED: LACTATED RINGER'S 1000 ML INJ 1,000 ML IV ONE (02:24)
--- NOTE | 2016-12-11 02:34 | PD.LABORPN ---
Subjective Subjective Patient seen and examined. Beginning to have a fever of 100.6. Patient has been laboring for the last 12 hours. Patient has been dilated to 10 station 0 as had failed to progress the last 4 hours. Explained to her the risks of the baby with her developing fever as well as late decelerations on tracing. She agrees with plan for at this time. Discussed case with the OB hospitalist Dr. Staley and she agrees with plan for . (Franco Krishnamurthy MD R2) Objective Vital Signs Vital Signs Date Time Temp Pulse Resp B/P Pulse Ox O2 Delivery O2 Flow Rate FiO2 12/11/16 02:12 100.6 12/11/16 02:10 124 116/60 12/11/16 02:10 117 12/11/16 02:05 128 12/11/16 02:05 127 109/60 12/11/16 02:00 116 106/47 12/11/16 02:00 130 12/11/16 01:55 110 12/11/16 01:55 120 102/55 12/11/16 01:50 122 97/60 12/11/16 01:45 120 102/57 12/11/16 01:40 119 99/86 12/11/16 01:35 123 109/58 12/11/16 01:30 121 102/56 12/11/16 01:25 113 116/56 12/11/16 01:20 111 125/56 12/11/16 01:15 116 129/66 12/11/16 01:10 124 124/63 12/11/16 01:06 112 130/52 12/11/16 01:05 121 12/11/16 01:00 129 144/87 12/11/16 00:55 130 12/11/16 00:55 129 148/69 12/11/16 00:51 135 132/44 12/11/16 00:50 127 12/11/16 00:49 138 154/85 12/11/16 00:45 126 139/77 12/11/16 00:30 131 125/73 12/11/16 00:15 115 116/70 12/11/16 00:12 130 121/62 12/11/16 00:01 74 89/21 12/11/16 00:00 98.7 2/9/17 00:00 98.7 12/10/16 23:31 213 132/106 12/10/16 22:30 100 112/69 12/10/16 22:01 101 103/48 12/10/16 21:45 98.7 12/10/16 21:30 100 123/70 12/10/16 21:00 104 115/61 12/10/16 20:31 87 99/39 12/10/16 20:00 94 119/67 12/10/16 19:30 97.8 18 12/10/16 19:30 90 117/80 12/10/16 19:00 102 117/64 Objective Pelvic Exam: Cervix: Soft Dilatation: 10 Effacement: 100 Station: 0 Presentation: Vertex OP Membranes: AROM Uterine Contractions: 1-2 min FHT's: Category: 2 Baseline: 150 Reactive: Up to 190 Variability: moderate Decels: Late Decels (Franco Krishnamurthy MD R2) Assessment/Plan Problem List: (1) Uterine contractions during (2) Intrauterine (3) 39 weeks gestation of Assessment and Plan 21 year-old at 39/5 plan for due to failure to progress and maternal fever. 1. Intrauterine : Laboring, GBS negative, AROM. Failure to Progress and Materna Fever -Temperature 100.6 -Dilated to a 10 and station 0 with out any improvement for several hours of attempted pushing -Continuous heart tracing: Category 1 -Continuous monitoring contractions: Every 1-2 minutes -Epidural in place -Started Ancef -Preparing patient for 2. Nausea/Vomiting/Itch -Ondansetron 4mg IV q6h PRN nausea/vomiting -Benadryl for the Itch -CMP within normal limits 3. Hematuria -U/A: Trace protein, trace blood, culture is not indicated 4. Anemia -Continue iron supplementation -Current hemoglobin/hematocrit 11.2/33.2 -Will get repeat CBC following C/S (Franco Krishnamurthy MD R2) Assessment and Plan Current status d/w patient prior to delivery. Arrest of descent d/w patient and family. R/B/A reviewed with patient. All questions answered. Will plan for C/S. Peds and Anesthesia notified. (Cat Staley MD) Franco Krishnamurthy MD R2 Dec 11, 2016 02:34 Cat Staley MD Dec 11, 2016 04:12
[2016-12-11] MEDS ORDERED: OXYTOCIN 10 UNIT/ML AMP ONE (02:50)
[2016-12-11] MEDS ORDERED: LACTATED RINGER'S 1000 ML INJ 1,000 ML IV SCH (02:54)
[2016-12-11] MEDS ORDERED: CITRIC ACID-SODIUM CITRATE LIQ 30 ML UDC PO SCH (04:00)
[2016-12-11] MEDS ORDERED: ONDANSETRON HCL 4 MG/2 ML VIAL ONE (04:02)
[2016-12-11] MEDS ORDERED: MORPHINE SULFATE PF 5 MG/10 ML VIAL ONE (04:02)
[2016-12-11] MEDS ORDERED: SODIUM CHLORIDE 0.9% FLUSH 5 ML FLUSH IV PRN (04:15)
[2016-12-11] MEDS ORDERED: oxyCODONE/ACETAMINOPHEN 5 MG/325 MG TAB PO PRN (04:15)
[2016-12-11] MEDS ORDERED: OXYTOCIN 30 UNITS-500ML PREMIX 500 ML IV ONE (04:15)
--- NOTE | 2016-12-11 04:15 | PD.OB.DELI ---
Procedure Note Section Procedure Pre Op Diagnosis at 39w 6d in active labor with arrest of descent and chorioamnionitis Post Op Diagnosis: Post Op Diagnosis Same as pre- op Performed by Cat Staley Procedure: Primary Low Transverse Sec Indication for delivery: Other (Arrest of descent, chorioamnionitis) Informed consent obtained: For procedure Confirmed correct: Time-out taken Anesthesia: Epidural Medication prior to procedure: As documented in eMAR, Antibiotics, IV Urinary catheter: ml urine output (75cc) Sterile preparation: In usual fashion Position: Supine Operative Features Skin Incision: Pfannenstiel Uterine Incision: Low transverse w/knife / blunt ext Membranes Ruptured: Previously Presentation: Occiput posterior Time of : 03:08 Delivery of : Uneventful Infant: Male One Minute : 9 Five Minute : 9 Weight: 3910g Status of : Viable Placenta delivered: Sent to pathology Procedure tolerated: Well Maternal Condition: Stable Condition: Stable Cat Staley MD Dec 11, 2016 04:15
[2016-12-11] MEDS ORDERED: CLINDAMYCIN INJ 900 MG in SODIUM CHLORIDE 0.9% INJ 100 ML IV SCH (04:30)
[2016-12-11] MEDS ORDERED: GENTAMICIN INJ 80 MG in SODIUM CHLORIDE 0.9% INJ 100 ML IV SCH (06:00)
[2016-12-11] MEDS: CLINDAMYCIN INJ 900 MG in SODIUM CHLORIDE 0.9% INJ 100 ML IV SCH ×3 (06:59→21:02)
[2016-12-11] MEDS: GENTAMICIN/SOD CHL 80 MG/100 ML IV SCH ×3 (07:29→21:48)
[2016-12-11 07:31] LABS: AUTOMATED NEUTROPHIL # 18.9 TH/MM3 (1.8-7.7); BASOPHIL % 0.1 % (0.0-2.0); HEMATOCRIT 24.8 % (35.0-46.0); HEMO FLAGS DIFF FINAL; LYMPH % 4.7 % (9.0-44.0); MEAN CELL VOLUME 83.3 FL (80.0-100.0); MEAN CORPUSCULAR HEMOGLOBIN 27.7 PG (27.0-34.0); MEAN CORPUSCULAR HGB CONC 33.2 % (32.0-36.0); NEUT % 89.2 % (16.0-70.0); PLATELET COUNT 151 TH/MM3 (150-450); RED BLOOD COUNT 2.98 MIL/MM3 (4.00-5.30); RED CELL DISTRIBUTION WIDTH 19.7 % (11.6-17.2); WHITE BLOOD COUNT 21.1 TH/MM3 (4.0-11.0)
--- NOTE | 2016-12-11 07:44 | HHI.OB ---
Subjective Post Operative Day: 0 Remarks Postoperative day number 0. AFVSS overnight. Pain controlled. Incision not draining. Decreased lochia. Denies dysuria. No breast tenderness. She is feeding the baby via breast. Appetite good. No nausea or vomiting. Positive flatus. Negative bowel movement. Ambulating well. Denies calf pain, shortness of breath, or cough. Otherwise, she is doing well this morning and has no other complaints. (Franco Krishnamurthy MD R2) Objective Vitals/I&O Vital Signs Date Time Temp Pulse Resp B/P Pulse Ox O2 Delivery O2 Flow Rate FiO2 12/11/16 05:50 98.0 101 18 116/67 12/11/16 05:00 107/67 12/11/16 05:00 98.6 96 18 98 12/11/16 04:45 93 18 107/64 98 12/11/16 04:30 99 12/11/16 04:30 101 18 101/51 12/11/16 04:15 105 105/54 12/11/16 04:05 98.6 99 12/11/16 04:05 105 18 99/47 12/11/16 02:25 126 116/61 12/11/16 02:20 131 115/74 12/11/16 02:15 116 117/56 12/11/16 02:12 100.6 12/11/16 02:10 124 116/60 12/11/16 02:10 117 12/11/16 02:05 128 12/11/16 02:05 127 109/60 12/11/16 02:00 116 106/47 12/11/16 02:00 130 12/11/16 01:55 110 12/11/16 01:55 120 102/55 12/11/16 01:50 122 97/60 12/11/16 01:45 120 102/57 12/11/16 01:40 119 99/86 12/11/16 01:35 123 109/58 12/11/16 01:30 121 102/56 12/11/16 01:25 113 116/56 12/11/16 01:20 111 125/56 12/11/16 01:15 116 129/66 12/11/16 01:10 124 124/63 12/11/16 01:06 112 130/52 12/11/16 01:05 121 12/11/16 01:00 129 144/87 12/11/16 00:55 130 12/11/16 00:55 129 148/69 12/11/16 00:51 135 132/44 12/11/16 00:50 127 12/11/16 00:49 138 154/85 12/11/16 00:45 126 139/77 12/11/16 00:30 131 125/73 12/11/16 00:15 115 116/70 12/11/16 00:12 130 121/62 12/11/16 00:01 74 89/21 12/11/16 00:00 98.7 12/11/16 00:00 98.7 12/10/16 23:31 213 132/106 12/10/16 22:30 100 112/69 12/10/16 22:01 101 103/48 12/10/16 21:45 98.7 12/10/16 21:30 100 123/70 12/10/16 21:00 104 115/61 12/10/16 20:31 87 99/39 12/10/16 20:00 94 119/67 12/10/16 19:30 97.8 18 12/10/16 19:30 90 117/80 12/10/16 19:00 102 117/64 12/10/16 17:39 98.0 18 12/10/16 17:30 99/46 12/10/16 17:30 91 12/10/16 17:05 104 12/10/16 17:01 106 99/39 12/10/16 17:00 105 12/10/16 17:00 16 12/10/16 16:40 101 12/10/16 16:35 106 12/10/16 16:31 101 117/65 12/10/16 16:30 104 12/10/16 16:27 20 12/10/16 16:25 96 12/10/16 16:21 24 12/10/16 16:20 101 12/10/16 16:19 95 99/49 12/10/16 16:15 108 12/10/16 16:15 18 12/10/16 16:10 83 12/10/16 16:09 82 99/47 12/10/16 16:05 89 12/10/16 16:01 121 69/30 12/10/16 16:00 96 12/10/16 15:54 20 12/10/16 15:54 97.9 12/10/16 15:50 93 101/53 12/10/16 15:45 88 99/58 12/10/16 15:45 93 12/10/16 15:40 104 87/64 12/10/16 15:40 88 12/10/16 15:35 91 12/10/16 15:35 93 111/60 12/10/16 15:30 103 114/56 12/10/16 15:30 96 12/10/16 15:25 96 105/60 12/10/16 15:25 102 12/10/16 15:20 99 12/10/16 15:20 103 108/58 12/10/16 15:15 100 12/10/16 15:15 102 108/58 12/10/16 15:12 109 101/53 12/10/16 15:10 105 12/10/16 15:09 105 114/56 12/10/16 15:05 105 122/70 12/10/16 15:05 105 12/10/16 15:00 107 12/10/16 14:55 101 12/10/16 14:43 93 121/76 12/10/16 12:20 114 (Franco Krishnamurthy MD R2) Result Diagram: 12/11/16 0719 12/10/16 1240 Objective Remarks GENERAL: Well-nourished, well-developed patient. CARDIOVASCULAR: Regular rate and rhythm without murmurs, gallops, or rubs. RESPIRATORY: Breath sounds equal bilaterally. No accessory muscle use. ABDOMEN/GI: Abdomen soft, non-tender, bowel sounds present. Incision: Clean, dry and intact. Fundus: Firm, non-tender at umbilicus. GENITOURINARY: Light to moderate bleeding. EXTREMITIES: No cyanosis or edema, non-tender, without signs of DVT. Medications and IVs Current Medications Medications (Trade) Dose Ordered Sig/Will Route Start Time Stop Time Status Last Admin Lactated Ringer's 1,000 ml @ 100 mls/hr Q10H IV 12/11/16 09:05 12/12/16 05:04 (Pitocin 30 Units-NS 500 ml Premix) 500 ml @ 100 mls/hr ONCE ONCE IV 12/11/16 04:15 2/9/17 09:14 (NS Flush) 2 ml BID IV 12/11/16 09:00 (NS Flush) 2 ml UNSCH PRN IV 12/11/16 04:15 (Motrin) 600 mg Q6H PRN PO 12/11/16 04:15 (M-M-R Ii Inj) 0.5 ml ONCE ONCE SQ 12/12/16 16:00 12/12/16 16:01 (Boostrix Inj) 0.5 ml ONCE ONCE IM 12/12/16 16:00 12/12/16 16:01 (Percocet 5-325 Mg) 1 tab Q4H PRN PO 12/11/16 04:15 Oxycodone/ Acetaminophen 2 tab 2 tab Q4H PRN PO 12/11/16 04:15 Clindamycin Phosphate 900 mg/ Sodium Chloride 106 ml @ 212 mls/hr Q8H IV 12/11/16 05:00 12/11/16 06:59 (Gentamicin 80 Mg Premix) 100 ml @ 200 mls/hr Q8HR IV 12/11/16 06:00 12/11/16 07:29 (Franco Krishnamurthy MD R2) Assessment/Plan Problem List: (1) Uterine contractions during (2) Intrauterine (3) 39 weeks gestation of (4) delivery delivered (5) care following delivery Assessment and Plan 21 y/o female who is POD# 0 s/p CXN. -Continue routine care. -Percocet and Motrin PRN pain. -Encouraged OOB. Advised pelvic rest for 6 wks. Will need a f/u appt. in 1 wk for incision check. -Re: ctrl, she would like Depot Shot. -D/c in 1-2 more days. 2. Maternal Temperature of 100.6: clear amniotic fluid at time of rupture and clear amniotic fluid at time of . Uterus none tender on exam. -Continue Clinda and Gentamicin 3. Hx of Anemia -Post H&H: 8.2/24.8 wdw OB attending Discharge Planning Discharge plan for next one to 2 days (Franco Krishnamurthy MD R2) Assessment and Plan Patient seen and examined. Agree with resident note. (Cat Staley MD) Franco Krishnamurthy MD R2 Dec 11, 2016 07:44 Cat Staley MD Dec 29, 2016 12:35
[2016-12-11] MEDS: SODIUM CHLORIDE 0.9% FLUSH 5 ML FLUSH IV SCH ×2 (09:00→21:00)
[2016-12-11] MEDS ORDERED: FERROUS SULFATE 325 MG (65 MG ELEMENTAL IRON) TAB PO SCH (09:00)
[2016-12-11] MEDS ORDERED: diphenhydrAMINE HCL ELIXIR 12.5 MG/5 ML CUP PO PRN (09:00)
[2016-12-11] MEDS: LACTATED RINGER'S 1000 ML INJ 1,000 ML IV SCH ×2 (10:30→19:05)
[2016-12-11] MEDS ORDERED: WITCH HAZEL 50%/GLYCERIN 12.5% 40 PAD JAR TOPICAL PRN (11:00)
[2016-12-11] MEDS ORDERED: MELATONIN 5 MG TAB PO PRN (11:00)
[2016-12-11] MEDS ORDERED: CALCIUM CARBONATE 500 MG CHEWABLE TAB CHEW PRN (11:00)
[2016-12-11] MEDS ORDERED: PETROLEUM/SHARK LIVER OIL 60 GM TUBE RECTAL PRN (11:00)
[2016-12-11] MEDS ORDERED: PILL SPLITTER OTHER PRN (11:15)
[2016-12-11] MEDS: diphenhydrAMINE HCL 25 MG CAP PO PRN ×2 (12:04→21:03)
[2016-12-11] MEDS: IBUPROFEN 600 MG TAB PO PRN ×2 (13:41→21:03)
[2016-12-11] MEDS ORDERED: OXYTOCIN 30 UNITS-500ML PREMIX 500 ML IV PRN (14:15)
[2016-12-11] MEDS ORDERED: AMMONIA AROMATIC INHALANT 0.33 ML ONE (21:25)
[2016-12-12] MEDS: IBUPROFEN 600 MG TAB PO PRN ×2 (03:18→15:15)
[2016-12-12] MEDS: oxyCODONE/ACETAMINOPHEN 5 MG/325 MG TAB PO PRN ×3 (04:12→19:57)
[2016-12-12] MEDS: CLINDAMYCIN INJ 900 MG in SODIUM CHLORIDE 0.9% INJ 100 ML IV SCH (04:28)
[2016-12-12 05:52] LABS: AUTOMATED NEUTROPHIL # 11.8 TH/MM3 (1.8-7.7); BASOPHIL % 0.3 % (0.0-2.0); EOSINOPHIL # 0.2 TH/MM3 (0-0.4); EOSINOPHIL % 1.2 % (0.0-4.0); LYMPH % 16.2 % (9.0-44.0); LYMPHOCYTE # 2.5 TH/MM3 (1.0-4.8); MEAN CELL VOLUME 84.9 FL (80.0-100.0); MEAN CORPUSCULAR HEMOGLOBIN 27.9 PG (27.0-34.0); MEAN CORPUSCULAR HGB CONC 32.8 % (32.0-36.0); MONO % 6.6 % (0.0-8.0); NEUT % 75.7 % (16.0-70.0); PLATELET COUNT 137 TH/MM3 (150-450); RED BLOOD COUNT 2.31 MIL/MM3 (4.00-5.30); WHITE BLOOD COUNT 15.6 TH/MM3 (4.0-11.0)
[2016-12-12] MEDS: GENTAMICIN/SOD CHL 80 MG/100 ML IV SCH (06:05)
[2016-12-12 06:18] LABS: HEMATOCRIT 19.6 % (35.0-46.0); HEMO FLAGS DIFF FINAL
[2016-12-12] MEDS ORDERED: SODIUM CHLOR 0.9% 250 ML INJ 250 ML IV ONE (07:30)
--- NOTE | 2016-12-12 07:49 | MP ---
cc: ASHU STALEY MD DATE OF SURGERY 12/11/2016 PREOPERATIVE DIAGNOSIS A 21 year-old 2 para 1 at 39-6/7th weeks in active labor with arrest of descent and chorioamnionitis. POSTOPERATIVE DIAGNOSIS A 21 year-old 2 para 1 at 39-6/7th weeks in active labor with arrest of descent and chorioamnionitis. PROCEDURE Primary low transverse section via Pfannenstiel skin incision. SURGEON Dr. 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 ANESTHESIA Epidural ESTIMATED BLOOD LOSS 800 cc. IV FLUIDS 1300 cc LR URINE OUTPUT 75 cc, slightly blood tinged at the end of the procedure. FINDINGS Viable male in OP presentation with 's of 9 at one minute and 9 at five minutes, 3910 grams. Virtually normal uterus, bilateral fallopian tubes and ovaries. TIME OF DELIVERY 0008 PATHOLOGY Placenta COMPLICATIONS None PROCEDURE The patient was taken to the operating room where she was prepped and draped in a normal sterile fashion in the supine position. After anesthesia was deemed to be adequate, a Pfannenstiel skin incision was made approximately 2 cm above the symphysis pubis and carried down to the underlying layer of the fascia with a knife. The fascia was then incised in the midline and extended laterally. The rectus muscles were then in the midline, peritoneum was then entered bluntly. The bladder blade was then inserted into the abdomen and the vesicoperitoneum was then entered with Metzenbaum scissors and a bladder flap was created digitally. A bladder blade was then inserted into the bladder flap and a transverse incision was made on the lower uterine aspect, extended by finger fraction. The 's head was then delivered atraumatically. The mouth and nares bulb suctioned. The anterior and posterior shoulders were delivered followed by the remainder of the body. The cord was clamped times two and cut. The was then handed off to awaiting nursery staff. Attention was then returned to the patient where a three vessel placenta was then removed manually. The uterus was then exteriorized, cleared of all clot and debris. The uterine incision was then repaired with 0 Vicryl in a running lock fashion with the second layer imbricated using the same suture. Two [id number] stitches were placed in the lower uterine aspect with good hemostasis noted. The pelvis were then irrigated and suctioned and clots and debris were then removed. The bladder flap was then reapproximated using 3-0 Vicryl in a running continuous fashion. The uterus was then returned to the abdomen. The peritoneum were then reapproximated using 2-0 Vicryl in a running continuous fashion. The rectus muscles were reapproximated with a U-stitch times two using 2-0 Vicryl. The fascial incision was then reapproximated using 0 PDS in a running locked fashion. The subcutaneous adipose tissue was then irrigated and made hemostatic using the cautery were needed and then reapproximated using 2-0 plain gut in a running continuous fashion in two layers and the skin was then reapproximated using 4-0 Vicryl on a Christiano needle in a subcuticular fashion. All sponge, lap, instrument and needle counts were correct times two. Two grams of Ancef were administered prior to the start of the procedure and 20 units of Pitocin was administered in one liter of LR. The patient was taken to the Recovery Room in stable condition. Ashu Staley MD JR/BRADY /4:33 AM /7:27 AM MTDFernando
--- NOTE | 2016-12-12 08:19 | HHI.OB ---
Subjective Post Operative Day: 1 Remarks Postoperative day number 1. AFVSS overnight. Pain controlled. Incision not draining. Decreased lochia. Denies dysuria. No breast tenderness. She is feeding the baby via breast. Appetite good. No nausea or vomiting. Positive flatus. Negative bowel movement. Ambulating well. Denies calf pain, shortness of breath, or cough. Urinary incontinent overnight required replacement of Miller. Hemoglobin low at 6.4, will receive 2 units of blood. Otherwise, she is doing well this morning and has no other complaints. Objective Vitals/I&O Vital Signs Date Time Temp Pulse Resp B/P Pulse Ox O2 Delivery O2 Flow Rate FiO2 12/11/16 16:00 99.5 100 20 107/59 12/11/16 13:35 110/67 12/11/16 13:35 95 Result Diagram: 12/12/16 0459 12/10/16 1240 Objective Remarks GENERAL: Well-nourished, well-developed patient. CARDIOVASCULAR: Regular rate and rhythm without murmurs, gallops, or rubs. RESPIRATORY: Breath sounds equal bilaterally. No accessory muscle use. ABDOMEN/GI: Abdomen soft, non-tender, bowel sounds present. Incision: Clean, dry and intact. Fundus: Firm, non-tender at umbilicus. GENITOURINARY: Light to moderate bleeding. EXTREMITIES: No cyanosis or edema, non-tender, without signs of DVT. Medications and IVs Current Medications Medications (Trade) Dose Ordered Sig/Will Route Start Time Stop Time Status Last Admin (NS Flush) 2 ml BID IV 12/11/16 09:00 (NS Flush) 2 ml UNSCH PRN IV 12/11/16 04:15 12/12/16 04:28 (Motrin) 600 mg Q6H PRN PO 12/11/16 04:15 12/12/16 03:18 (M-M-R Ii Inj) 0.5 ml ONCE ONCE SQ 12/12/16 16:00 12/12/16 16:01 (Boostrix Inj) 0.5 ml ONCE ONCE IM 12/12/16 16:00 12/12/16 16:01 (Percocet 5-325 Mg) 1 tab Q4H PRN PO 12/11/16 04:15 (Percocet 5-325 Mg) 2 tab Q4H PRN PO 12/11/16 04:15 12/12/16 04:12 (Benadryl) 25 mg Q6H PRN PO 12/11/16 11:00 12/11/16 21:03 (Tums Chew) 500 mg Q6H PRN CHEW 12/11/16 11:00 (Melatonin) 2.5 mg HS PRN PO 12/11/16 11:00 (Miralax) 17 gm DAILY PO 12/12/16 09:00 (Preparation H Oint) 1 applic Q4H PRN RECTAL 12/11/16 11:00 (Tucks Pads) 1 applic UNSCH PRN TOPICAL 12/11/16 11:00 Miscellaneous 1 ea 1 ea UNSCH PRN OTHER 12/11/16 11:15 (NS 250 ml Inj) 250 ml @ 15 mls/hr ONCE ONCE IV 12/12/16 07:30 12/13/16 00:09 Assessment/Plan Problem List: (1) Uterine contractions during (2) Intrauterine (3) 39 weeks gestation of (4) delivery delivered (5) care following delivery (6) Anemia Assessment and Plan 21 y/o female who is POD# 1 s/p CXN. -Continue routine care. -Percocet and Motrin PRN pain. -Encouraged OOB. Advised pelvic rest for 6 wks. Will need a f/u appt. in 1 wk for incision check. -Re: ctrl, she would like Depot Shot. -D/c in 1-2 more days. 2. Maternal Temperature of 100.6: clear amniotic fluid at time of rupture and clear amniotic fluid at time of . Uterus none tender on exam. -Continue Clinda and Gentamicin 3. Hx of Anemia -Post H&H: 6.4/19.9 -2 units packed red blood cells ordered wdw OB attending Discharge Planning Discharge plan for next one to 2 days Franco Krishnamurthy MD R2 Dec 12, 2016 08:19
[2016-12-12] MEDS ORDERED: POLYETHYLENE GLYCOL 17 GM PKG PO SCH (09:00)
[2016-12-12 10:48] VITALS: BP 103/62; PULSE 96; RESP 16; TEMP 98.3
[2016-12-12 11:06] VITALS: BP 100/56; PULSE 84; RESP 16; TEMP 98.3
[2016-12-12 13:00] VITALS: BP 113/53; PULSE 108; RESP 16; TEMP 98.3
[2016-12-12 13:50] VITALS: BP 113/53; PULSE 108; RESP 16; TEMP 98.3
[2016-12-12 14:00] VITALS: BP 105/66; PULSE 109; RESP 17; TEMP 98.5
[2016-12-12 15:52] VITALS: BP 118/72; PULSE 98; RESP 16; TEMP 99.2
[2016-12-12] MEDS ORDERED: DIPHTH/TETANUS/ACEL PERTUSSIS (BOOSTER) 0.5 ML VIAL/PFS IM ONE (16:00)
[2016-12-12] MEDS ORDERED: MEASLES, MUMPS, RUBELLA VACCINE 0.5 ML VIAL SQ ONE (16:00)
[2016-12-12 19:07] LABS: HEMATOCRIT 28.1 % (35.0-46.0); REVIEW FLAG FINAL
[2016-12-13] MEDS: IBUPROFEN 600 MG TAB PO PRN ×4 (02:37→22:25)
[2016-12-13] MEDS: oxyCODONE/ACETAMINOPHEN 5 MG/325 MG TAB PO PRN ×4 (02:38→20:04)
--- NOTE | 2016-12-13 07:41 | HHI.OB ---
Subjective Post Operative Day: 2 Remarks Postoperative day number 2. AFVSS overnight. Pain controlled. Incision not draining. Decreased lochia. Denies dysuria. No breast tenderness. She is feeding the baby via breast/formula. Appetite good. No nausea or vomiting. Positive flatus. Negative bowel movement. Ambulating well. Denies calf pain, shortness of breath, or cough. Otherwise, she is doing well this morning and has no other complaints. (Franco Krishnamurthy MD R2) Remarks Patient seen and evaluated with resident under direct supervision, agree with assessment and plan. (Yole Russo MD) Objective Vitals/I&O Vital Signs Date Time Temp Pulse Resp B/P Pulse Ox O2 Delivery O2 Flow Rate FiO2 12/13/16 03:38 16 12/12/16 20:57 18 12/12/16 15:52 99.2 98 16 118/72 12/12/16 14:00 98.5 109 17 105/66 12/12/16 13:50 98.3 108 16 113/53 12/12/16 13:00 98.3 108 16 113/53 12/12/16 11:06 98.3 84 16 100/56 12/12/16 10:48 98.3 96 16 103/62 (Franco Krishnamurthy MD R2) Result Diagram: 12/12/16 1850 12/10/16 1240 Objective Remarks GENERAL: Well-nourished, well-developed patient. CARDIOVASCULAR: Regular rate and rhythm without murmurs, gallops, or rubs. RESPIRATORY: Breath sounds equal bilaterally. No accessory muscle use. ABDOMEN/GI: Abdomen soft, non-tender, bowel sounds present. Incision: Clean, dry and intact. Fundus: Firm, non-tender at umbilicus. GENITOURINARY: Light to moderate bleeding. EXTREMITIES: No cyanosis or edema, non-tender, without signs of DVT. Medications and IVs Current Medications Medications (Trade) Dose Ordered Sig/Will Route Start Time Stop Time Status Last Admin (NS Flush) 2 ml BID IV 12/11/16 09:00 (NS Flush) 2 ml UNSCH PRN IV 12/11/16 04:15 12/12/16 04:28 (Motrin) 600 mg Q6H PRN PO 12/11/16 04:15 12/13/16 02:37 (Percocet 5-325 Mg) 1 tab Q4H PRN PO 12/11/16 04:15 (Percocet 5-325 Mg) 2 tab Q4H PRN PO 12/11/16 04:15 12/13/16 02:38 (Benadryl) 25 mg Q6H PRN PO 12/11/16 11:00 12/11/16 21:03 (Tums Chew) 500 mg Q6H PRN CHEW 12/11/16 11:00 (Melatonin) 2.5 mg HS PRN PO 12/11/16 11:00 (Miralax) 17 gm DAILY PO 12/12/16 09:00 (Preparation H Oint) 1 applic Q4H PRN RECTAL 12/11/16 11:00 (Tucks Pads) 1 applic UNSCH PRN TOPICAL 12/11/16 11:00 (Pill Splitter) 1 ea UNSCH PRN OTHER 12/11/16 11:15 (Franco Krishnamurthy MD R2) Assessment/Plan Problem List: (1) Uterine contractions during (2) Intrauterine (3) 39 weeks gestation of (4) delivery delivered (5) care following delivery (6) Anemia Assessment and Plan 21 y/o female who is POD# 2 s/p CXN. -Continue routine care. -Percocet and Motrin PRN pain. -Encouraged OOB. Advised pelvic rest for 6 wks. Will need a f/u appt. in 1 wk for incision check. -Re: ctrl, she would like Depot Shot. -D/c plan for tomorrow 2. Maternal Temperature of 100.6: clear amniotic fluid at time of rupture and clear amniotic fluid at time of . Uterus none tender on exam. over 24hours afebrile since delivery -DC antibiotics 3. Hx of Anemia -Post H&H: 6.4/19.9 -2 units packed red blood cells ordered -Repeat H&H is 9.5/28.1 wdw OB attending Discharge Planning Discharge plan for tomorrow (Franco Krishnamurthy MD R2) Franco Krishnamurthy MD R2 Dec 13, 2016 07:41 Yoel Russo MD Dec 13, 2016 09:45
[2016-12-13] MEDS ORDERED: medroxyPROGESTERone ACETATE SUSP 150 MG/ML SYRINGE IM ONE (08:00)
[2016-12-13] MEDS ORDERED: ONDANSETRON HCL 4 MG/2 ML VIAL IV PUSH PRN (14:15)
[2016-12-14] MEDS: IBUPROFEN 600 MG TAB PO PRN (06:09)
[2016-12-14] MEDS: oxyCODONE/ACETAMINOPHEN 5 MG/325 MG TAB PO PRN (06:09)
[2016-12-14] MEDS ORDERED: IBUP-232 PO (06:26)
[2016-12-14] MEDS ORDERED: OXYC1TAB63 PO (06:26)
[2016-12-14] MEDS ORDERED: POLY17S PO (06:26)
--- NOTE | 2016-12-14 06:28 | HHI.DCPOC ---
Discharge Care Plan Diagnosis: (1) 39 weeks gestation of (2) Uterine contractions during (3) delivery delivered (4) care following delivery (5) Anemia Report Symptoms to Your Doctor -Temperate above 100.5 degrees -Redness, of incision or excessive or foul smelling drainage -Unusual pain or calf pain -Increased vaginal bleeding -Painful or difficulty urinating -Feelings of extreme sadness or anxiety after 2 weeks Follow up with OB in 1 week for incision evaluation Follow up with OB in 6 weeks Pelvic Rest for 6 weeks Avoid lifting anything heavier then baby until cleared by OB Goals to Promote Your Health * To prevent worsening of your condition and complications * To maintain your health at the optimal level Directions to Meet Your Goals Take your medications as prescribed Follow your dietary instruction Follow activity as directed Ensure plenty of rest for recovery Drink fluids for hydration Keep your appointments as scheduled Take your immunizations and boosters as scheduled If your symptoms worsen call your PCP, if no PCP go to Urgent Care Center or Emergency Room Smoking is Dangerous to Your Health. Avoid second hand smoke Call the 24-hour crisis hotline for domestic abuse at Franco Krishnamurthy MD R2 Dec 14, 2016 06:27
--- NOTE | 2016-12-14 07:29 | HHI.OB ---
Subjective Post Operative Day: 3 Remarks Postoperative day number 3. AFVSS overnight. Pain control. Incision not draining. Decreased lochia. Denies dysuria. No breast tenderness. She is feeding the baby via breast/bottle. Appetite good. No nausea or vomiting. Positive flatus. Negative bowel movement. Ambulating well. Denies calf pain, shortness of breath, or cough. Otherwise, she is doing well this morning and has no other complaints. Objective Result Diagram: 12/12/16 1850 12/10/16 1240 Objective Remarks GENERAL: Well-nourished, well-developed patient. CARDIOVASCULAR: Regular rate and rhythm without murmurs, gallops, or rubs. RESPIRATORY: Breath sounds equal bilaterally. No accessory muscle use. ABDOMEN/GI: Abdomen soft, non-tender, bowel sounds present. Incision: Clean, dry and intact. Fundus: Firm, non-tender at umbilicus. GENITOURINARY: Light to moderate bleeding. EXTREMITIES: No cyanosis or edema, non-tender, without signs of DVT. Medications and IVs Current Medications Medications (Trade) Dose Ordered Sig/Will Route Start Time Stop Time Status Last Admin (NS Flush) 2 ml BID IV 12/11/16 09:00 (NS Flush) 2 ml UNSCH PRN IV 12/11/16 04:15 12/12/16 04:28 (Motrin) 600 mg Q6H PRN PO 12/11/16 04:15 12/14/16 06:09 (Percocet 5-325 Mg) 1 tab Q4H PRN PO 12/11/16 04:15 12/13/16 23:55 (Percocet 5-325 Mg) 2 tab Q4H PRN PO 12/11/16 04:15 12/14/16 06:09 (Benadryl) 25 mg Q6H PRN PO 12/11/16 11:00 12/11/16 21:03 (Tums Chew) 500 mg Q6H PRN CHEW 12/11/16 11:00 (Melatonin) 2.5 mg HS PRN PO 12/11/16 11:00 (Miralax) 17 gm DAILY PO 12/12/16 09:00 (Preparation H Oint) 1 applic Q4H PRN RECTAL 12/11/16 11:00 (Tucks Pads) 1 applic UNSCH PRN TOPICAL 12/11/16 11:00 (Pill Splitter) 1 ea UNSCH PRN OTHER 12/11/16 11:15 (Zofran Inj) 4 mg Q6HR PRN IV PUSH 12/13/16 14:15 12/13/16 14:30 Assessment/Plan Problem List: (1) Uterine contractions during (2) Intrauterine (3) 39 weeks gestation of (4) delivery delivered (5) care following delivery (6) Anemia Assessment and Plan 21 y/o female who is POD# 3 s/p CXN. -Continue routine care. -Percocet and Motrin PRN pain. -Encouraged OOB. Advised pelvic rest for 6 wks. Will need a f/u appt. in 1 wk for incision check. -Re: ctrl, she would like Depot Shot. -D/c plan for today 2. Maternal Temperature of 100.6: clear amniotic fluid at time of rupture and clear amniotic fluid at time of . Uterus none tender on exam. over 24hours afebrile since delivery -DC antibiotics 3. Hx of Anemia -Post H&H: 6.4/19.9 -S/P 2 units packed red blood cells -Repeat H&H is 9.5/28.1 -Repeat CBC pending: Will reevaluate prior to discharge wdw OB attending Discharge Planning Discharge plan for today Franco Krishnamurthy MD R2 Dec 14, 2016 07:29
[2016-12-14 08:07] VITALS: BP 130/89; PULSE 92; RESP 20; TEMP 98.6
[2016-12-14 09:11] LABS: AUTOMATED NEUTROPHIL # 7.7 TH/MM3 (1.8-7.7); BASOPHIL % 0.4 % (0.0-2.0); EOSINOPHIL # 0.3 TH/MM3 (0-0.4); EOSINOPHIL % 2.4 % (0.0-4.0); HEMATOCRIT 27.9 % (35.0-46.0); HEMO FLAGS DIFF FINAL; LYMPH % 23.9 % (9.0-44.0); LYMPHOCYTE # 2.7 TH/MM3 (1.0-4.8); MEAN CELL VOLUME 84.7 FL (80.0-100.0); MEAN CORPUSCULAR HEMOGLOBIN 28.1 PG (27.0-34.0); MEAN CORPUSCULAR HGB CONC 33.2 % (32.0-36.0); MONO % 5.2 % (0.0-8.0); NEUT % 68.1 % (16.0-70.0); PLATELET COUNT 210 TH/MM3 (150-450); RED BLOOD COUNT 3.29 MIL/MM3 (4.00-5.30); RED CELL DISTRIBUTION WIDTH 19.1 % (11.6-17.2); WHITE BLOOD COUNT 11.3 TH/MM3 (4.0-11.0)
== END 2016-12-14 09:45 | disposition home or self-care (01) | DRG 765 ==
LOC: HOBED 11:25 → H2EA 12:45 → H1EA 12-11 05:17
PROVIDERS: ADMIT Obstetrics & Gynecology; ATTEND Obstetrics & Gynecology
PROC: 00HU33Z Insertion of Infusion Device into Spinal Canal, Percutaneous Approach (ICD-10-PCS; 2016-12-10)
PROC: 3E0R3CZ (ICD-10-PCS; 2016-12-10)
PROC: 10907ZC Drainage of Amniotic Fluid, Therapeutic from Products of Conception, Via Natural or Artificial Opening (ICD-10-PCS; 2016-12-10)
PROC: 10D00Z1 Extraction of Products of Conception, Low, Open Approach (ICD-10-PCS; principal; 2016-12-11)
PROC: 30233N1 Transfusion of Nonautologous Red Blood Cells into Peripheral Vein, Percutaneous Approach (ICD-10-PCS; 2016-12-12)
PROC: 0T9B70Z Drainage of Bladder with Drainage Device, Via Natural or Artificial Opening (ICD-10-PCS; 2016-12-12)
DX: O99.02 Anemia complicating childbirth (principal); O41.1230 Chorioamnionitis, third trimester, not applicable or unspecified; E66.9 Obesity, unspecified; O75.2 Pyrexia during labor, not elsewhere classified; O62.1 Secondary uterine inertia; O99.214 Obesity complicating childbirth; Z68.30 Body mass index [BMI] 30.0-30.9, adult; Z3A.40 40 weeks gestation of pregnancy; R31.9 Hematuria, unspecified; Z3A.39 39 weeks gestation of pregnancy; O76 Abnormality in fetal heart rate and rhythm complicating labor and delivery; R32 Unspecified urinary incontinence; Z37.0 Single live birth
CPT/HCPCS: 36430; 59025; 80053; 81001; 85014; 85018; 85025; 85461; 86850; 86900; 86901; 86920; 90384; 99285; J1050; J1200; J1580; J2274; J2405; J2590; J2790; J7120; P9016

== ENCOUNTER 2017-03-24 08:59 | Emergency (ER) | payer MEDICAID ==
[~2017-03-24] VITALS: Ht 154.9 cm; Wt 73.0 kg
[2017-03-24 09:00] VITALS: BP 126/64; PULSE 78; RESP 16; TEMP 98.4; O2SAT 99
[2017-03-24] MEDS ORDERED: BROMSYP PO (09:29)
--- NOTE | 2017-03-24 09:30 | PD ---
HPI Chief Complaint: Cold / Flu Symptoms Time Seen by Provider: 09:10 Travel History International Travel<30 days: No Contact w/Intl Traveler<30days: No Traveled to known affect area: No History of Present Illness HPI 21-year-old female with no significant past medical history presents to emergency room with chief complaint of sore throat, cough, nasal congestion, mild headache for 4 days. Her symptoms are mild in nature. She reports she was concerned because multiple coworkers have strep throat and/or flu. She denies fevers, chills, nausea, vomiting, abdominal pain, shortness breath. PFSH Past Medical History Medical History: Denies Significant Hx Autoimmune Disease: No Anxiety: No Depression: No Cardiovascular Problems: No Gastrointestinal Disorders: Yes Genitourinary: No Musculoskeletal: No Neurologic: No Psychiatric: No Respiratory: No Immunizations Current: Yes PNEUMOCCOCAL Vaccine (Year): 2 ?: Not LMP: 03/17/2017 : 1 Past Surgical History Other Surgery: Yes (broken arm) Social History Alcohol Use: No Tobacco Use: No Substance Use: No Allergies-Medications (Allergen,Severity, Reaction): Coded Allergies: No Known Allergies (Verified , 03/24/17) Reported Meds & Prescriptions Reported Meds & Active Scripts Active Review of Systems Except as stated in HPI: all other systems reviewed are Neg Physical Exam Narrative GENERAL: Well-nourished, well-developed patient. SKIN: Focused skin assessment warm/dry. No rash. HEAD: Normocephalic. EYES: No scleral icterus. No injection or drainage. No photophobia. NECK/THROAT: Supple, trachea midline. No JVD or lymphadenopathy. No meningismus. Mild pharyngeal erythema. Uvula midline. No tonsillar enlargement or exudate. CARDIOVASCULAR: Regular rate and rhythm without murmurs, gallops, or rubs. RESPIRATORY: Breath sounds equal bilaterally. No accessory muscle use. No wheezing or rhonchi. GASTROINTESTINAL: Abdomen soft, non-tender, nondistended. MUSCULOSKELETAL: No cyanosis, or edema. BACK: Nontender without obvious deformity. No CVA tenderness. Data Data Last Documented VS Vital Signs Date Time Temp Pulse Resp B/P Pulse Ox O2 Delivery O2 Flow Rate FiO2 03/24/17 09:00 98.4 78 16 126/64 99 MDM Medical Decision Making Medical Screen Exam Complete: Yes Emergency Medical Condition: Yes Medical Record Reviewed: Yes Differential Diagnosis URI, pharyngitis, influenza, bronchitis Narrative Course 22-year-old female presents emergency Department with mild upper respiratory infection-like symptoms for 4 days. She is afebrile, nontoxic-appearing, mild symptomatology. She will be treated with Bromfed-DM instructed to push fluids and take OTC Motrin and follow up with her primary doctor. Diagnosis Primary Impression: URI (upper respiratory infection) Qualified Code: J06.9 - Viral upper respiratory tract infection Referrals: Primary Care Physician Patient Instructions: General Instructions, Upper Respiratory Infection (ED) Scripts [id number] Liq (Bromfed DM Liq)30-2-10 Mg/5 Ml Syrp5 Ml PO Q6H PRN (COUGH AND/OR COLD SYMPTOMS) #120 ML Ref 0 Prov:Tiffany Clark 03/24/17 Disposition: 01 DISCHARGE HOME Condition: Stable Tiffany Clark March 24, 2017 09:29
== END 2017-03-24 10:05 | disposition home or self-care (01) ==
LOC: NEPK 08:59
DX: J06.9 Acute upper respiratory infection, unspecified (principal)
CPT/HCPCS: 99283

== ENCOUNTER 2017-08-07 21:09 | Emergency (ER) | payer MEDICAID ==
[~2017-08-07] VITALS: Ht 154.9 cm; Wt 77.0 kg
[~2017-08-07 21:09] MED LIST changes: +BROMSYP PO; -CEPH-460 PO; -FERR325T PO; -METR-1 PO
[2017-08-07 21:11] VITALS: BP 121/80; PULSE 91; RESP 16; TEMP 98.4; O2SAT 98
--- NOTE | 2017-08-07 22:20 | PD ---
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 The patient is with one previous vaginal delivery and one previous emergency section. During the patient's last and delivery she was anemic, underwent blood transfusion. The patient states since her last delivery she had irregular menstrual cycles, started with some vaginal bleeding earlier today which is progressively worsened. The patient states she's gone through approximately 15 tampons throughout the day and has bled through tampons and pads. The patient states the blood is dark red with visible clots. She does complain of lower abdominal cramping, denies any associated nausea or vomiting. The patient does not currently have a interior design consultant. Patient's symptoms are moderate, there are no known alleviating or exacerbating factors. PFSH Past Medical History Autoimmune Disease: No Anxiety: No Depression: No Cardiovascular Problems: No Gastrointestinal Disorders: Yes Genitourinary: No Musculoskeletal: No Neurologic: No Psychiatric: No Respiratory: No Immunizations Current: Yes PNEUMOCCOCAL Vaccine (Year): 2 ?: Unknown LMP: IRREG : 1 Past Surgical History Section: Yes (12/2016 EMERGENTLY) Other Surgery: Yes (broken arm) Social History Alcohol Use: No Tobacco Use: No Substance Use: No Allergies-Medications (Allergen,Severity, Reaction): Coded Allergies: No Known Allergies (Verified , 08/07/17) Reported Meds & Prescriptions Reported Meds & Active Scripts Active No Active Prescriptions or Reported Medications Review of Systems Except as stated in HPI: all other systems reviewed are Neg General / Constitutional: No: Fever Cardiovascular: No: Chest Pain or Discomfort Respiratory: No: Shortness of Breath Gastrointestinal: Positive: Abdominal Pain, No: Nausea, Vomiting Genitourinary: Positive: Hematuria, Pelvic Pain (cramping), Menorrhagia, Vaginal Bleeding, No: Dysuria Physical Exam Narrative GENERAL: Awake, alert, pleasant 22-year-old female who appears her stated age and is in no acute respiratory distress. SKIN: Focused skin assessment warm/dry. HEAD: Atraumatic. Normocephalic. EYES: No injection or drainage. ENT: No nasal bleeding or discharge. Mucous membranes pink and moist. NECK: Trachea midline. No JVD. CARDIOVASCULAR: Regular rate and rhythm. No murmur appreciated. RESPIRATORY: No accessory muscle use. Clear to auscultation. Breath sounds equal bilaterally. GASTROINTESTINAL: Abdomen soft, mild suprapubic tenderness, no guarding or rigidity. Pelvic: Exam was performed in the presence of a female nurse. External examination reveals blood at the introitus. Vaginal speculum examination reveals dark red blood with a few clots in the vaginal vault. Cervix has blood at the cervical os, blood was removed using Hillman swabs and 4 x 4's on [facility] forceps. After the blood was removed there was no obvious continuing hemorrhage. MUSCULOSKELETAL: No obvious deformities. No clubbing. No cyanosis. No edema. NEUROLOGICAL: Awake and alert. No obvious cranial nerve deficits. Motor grossly within normal limits. Normal speech. PSYCHIATRIC: Appropriate mood and affect; insight and judgment normal. Data Data Last Documented VS Vital Signs Date Time Temp Pulse Resp B/P (MAP) Pulse Ox O2 Delivery O2 Flow Rate FiO2 08/07/17 21:11 98.4 91 16 121/80 (94) 98 Room Air Orders Orders Complete Blood Count With Diff (08/07/17 22:44) Type And Screen (08/07/17 22:44) Sodium Chlor 0.9% 1000 Ml Inj (Ns 1000 M (08/07/17 22:45) Ketorolac Inj (Toradol Inj) (08/07/17 22:45) Ed Urine Pregnancytest Poc (08/07/17 22:44) Labs Laboratory Tests Test 08/07/17 22:40 White Blood Count 13.1 TH/MM3 Red Blood Count 4.57 MIL/MM3 Hemoglobin 12.7 GM/DL Hematocrit 38.4 % Mean Corpuscular Volume 84.0 FL Mean Corpuscular Hemoglobin 27.8 PG Mean Corpuscular Hemoglobin Concent 33.1 % Red Cell Distribution Width 14.5 % Platelet Count 268 TH/MM3 Mean Platelet Volume 9.1 FL Neutrophils (%) (Auto) 65.4 % Lymphocytes (%) (Auto) 25.8 % Monocytes (%) (Auto) 6.0 % Eosinophils (%) (Auto) 2.2 % Basophils (%) (Auto) 0.6 % Neutrophils # (Auto) 8.6 TH/MM3 Lymphocytes # (Auto) 3.4 TH/MM3 Monocytes # (Auto) 0.8 TH/MM3 Eosinophils # (Auto) 0.3 TH/MM3 Basophils # (Auto) 0.1 TH/MM3 CBC Comment DIFF FINAL Differential Comment [facility] Medical Decision Making Medical Screen Exam Complete: Yes Emergency Medical Condition: Yes Medical Record Reviewed: Yes Interpretation(s) Laboratory Tests Test 08/07/17 22:40 White Blood Count 13.1 TH/MM3 Red Blood Count 4.57 MIL/MM3 Hemoglobin 12.7 GM/DL Hematocrit 38.4 % Mean Corpuscular Volume 84.0 FL Mean Corpuscular Hemoglobin 27.8 PG Mean Corpuscular Hemoglobin Concent 33.1 % Red Cell Distribution Width 14.5 % Platelet Count 268 TH/MM3 Mean Platelet Volume 9.1 FL Neutrophils (%) (Auto) 65.4 % Lymphocytes (%) (Auto) 25.8 % Monocytes (%) (Auto) 6.0 % Eosinophils (%) (Auto) 2.2 % Basophils (%) (Auto) 0.6 % Neutrophils # (Auto) 8.6 TH/MM3 Lymphocytes # (Auto) 3.4 TH/MM3 Monocytes # (Auto) 0.8 TH/MM3 Eosinophils # (Auto) 0.3 TH/MM3 Basophils # (Auto) 0.1 TH/MM3 CBC Comment DIFF FINAL Differential Comment Differential Diagnosis Differential diagnosis includes menorrhagia, dysfunctional uterine bleeding, threatened AB, ectopic , symptomatic anemia, uterine fibroid. Narrative Course IV was established, labs are drawn and sent, and the patient was placed on cardiac telemetry monitoring and continuous pulse oximetry monitoring. A pelvic exam was performed in the presence of a female nurse. CBC was sent to lab. Bedside UA test was negative. Hemoglobin was 12.7. Patient is stable for outpatient follow-up. She will be provided a copy of her CBC at discharge. Diagnosis Primary Impression: Menorrhagia Qualified Codes: N92.1 - Excessive and frequent menstruation with irregular cycle Additional Impression: Vaginal bleeding Patient Instructions: General Instructions Additional Instructions: Please provide the patient a copy of her CBC results at discharge. Over-the- counter ibuprofen as needed for cramping. Follow-up with a interior design consultant. Return if symptoms worsen or progress. Med/Other Pt SpecificInfo: No Change to Meds Scripts No Active Prescriptions or Reported Meds Disposition: DISCHARGE HOME Condition: Stable Feliciano Stone MD Aug 07, 2017 22:20
[2017-08-07] MEDS ORDERED: SODIUM CHLOR 0.9% 1000 ML INJ 1,000 ML IV ONE (22:45)
[2017-08-07] MEDS ORDERED: KETOROLAC TROMETHAMINE 30 MG/ML (IVP) VIAL IV PUSH ONE (22:45)
[2017-08-07 23:11] LABS: AUTOMATED NEUTROPHIL # 8.6 TH/MM3 (1.8-7.7); BASOPHIL # 0.1 TH/MM3 (0-0.2); BASOPHIL % 0.6 % (0.0-2.0); EOSINOPHIL # 0.3 TH/MM3 (0-0.4); EOSINOPHIL % 2.2 % (0.0-4.0); HEMATOCRIT 38.4 % (35.0-46.0); HEMO FLAGS DIFF FINAL; LYMPH % 25.8 % (9.0-44.0); LYMPHOCYTE # 3.4 TH/MM3 (1.0-4.8); MEAN CORPUSCULAR HEMOGLOBIN 27.8 PG (27.0-34.0); MEAN CORPUSCULAR HGB CONC 33.1 % (32.0-36.0); NEUT % 65.4 % (16.0-70.0); PLATELET COUNT 268 TH/MM3 (150-450); RED BLOOD COUNT 4.57 MIL/MM3 (4.00-5.30); RED CELL DISTRIBUTION WIDTH 14.5 % (11.6-17.2); WHITE BLOOD COUNT 13.1 TH/MM3 (4.0-11.0)
== END 2017-08-08 00:37 | disposition home or self-care (01) ==
LOC: NEPE 21:09
DX: N92.0 Excessive and frequent menstruation with regular cycle (principal)
CPT/HCPCS: 84703; 85025; 86850; 86900; 86901; 96374; 99284; J1885; J7030

== ENCOUNTER 2018-02-06 19:05 | Emergency (ER) | payer MEDICAID, OTHER ==
[2018-02-06 19:50] VITALS: BP 117/59; PULSE 59; RESP 16; TEMP 98.3; O2SAT 100
== END 2018-02-06 23:42 | disposition left against medical advice (07) ==
LOC: NED 19:05
DX: J00 Acute nasopharyngitis [common cold] (principal); Z53.21 Procedure and treatment not carried out due to patient leaving prior to being seen by health care provider
CPT/HCPCS: 99281

== ENCOUNTER 2018-04-20 22:53 | Emergency (ER) | payer OTHER ==
[~2018-04-20] VITALS: Ht 157.5 cm; Wt 82.0 kg
[2018-04-20 23:05] VITALS: BP 127/63; PULSE 86; RESP 17; TEMP 98.6; O2SAT 100
--- NOTE | 2018-04-20 23:36 | PD ---
HPI Chief Complaint: Complaint Time Seen by Provider: 23:30 Travel History International Travel<30 days: No Contact w/Intl Traveler<30days: No Traveled to known affect area: No History of Present Illness HPI 23-year-old female presents to the emergency department for complaint of 2 days of soft tissue swelling and tenderness to the vaginal tissue at the introitus. Patient states no trauma no injury. Patient states areas small and it causes her to have to take Tylenol and ibuprofen for pain and to sit on her left cheek so that she does not put pressure on the site. No fever no chills no nausea no vomiting. Her period was 1 month ago and is due to start at any time. Patient states she took a picture of the site and sent her to her mother and noticed that there was some blood so she is not sure if she bursts the site accidentally or if she is just started her period . Patient is 2 para 2 AB 0. Patient states that she is sexually active and does not use any contraception. Patient denies any pelvic pain vaginal discharge or abnormal vaginal bleeding. Patient is unable to identify exacerbating or other than pressure or palpating the area does increase her pain. Patient reports isolated localized site is quite painful to palpation. Patient denies any abdominal pain pelvic pain flank pain dysuria frequency urgency abnormal vaginal bleeding abnormal vaginal discharge fever chills nausea vomiting or diarrhea. Patient recently discontinued Depakote shots and was switched for a brief period 4-5 months on control pills just had stopped control pills had a period last month and is due to start her period in the next few days. PFSH Past Medical History Narrative Medical anemia ; nursing notes reviewed Autoimmune Disease: No Anxiety: No Depression: No Cardiovascular Problems: No Diminished Hearing: No Gastrointestinal Disorders: Yes Genitourinary: No Musculoskeletal: No Neurologic: No Psychiatric: No Respiratory: No Immunizations Current: Yes Tetanus Vaccination: < 5 Years Influenza Vaccination: Yes PNEUMOCCOCAL Vaccine (Year): 2 ?: Not LMP: 03/22/18 : 2 Para: 2 Past Surgical History Section: Yes (12/2016 EMERGENTLY) Other Surgery: Yes (broken arm) Social History Alcohol Use: No Tobacco Use: No Substance Use: No Allergies-Medications (Allergen,Severity, Reaction): Coded Allergies: No Known Allergies (Verified Adverse Reaction, Unknown, 04/20/18) Reported Meds & Prescriptions Reported Meds & Active Scripts Active No Active Prescriptions or Reported Medications Review of Systems Except as stated in HPI: all other systems reviewed are Neg General / Constitutional: No: Fever, Chills HENT: No: Congestion Cardiovascular: No: Chest Pain or Discomfort Respiratory: No: Shortness of Breath Gastrointestinal: No: Abdominal Pain Genitourinary: No: Dysuria (Vagina), Pelvic Pain, Discharge Musculoskeletal: No: Pain Skin: Positive Lumps Neurologic: No: Weakness Psychiatric: No: Anxiety Hematologic/Lymphatic: No: Lymph Node Enlargement Physical Exam Narrative GENERAL: Well-developed well-nourished female no acute distress no respiratory distress SKIN: Warm and dry. HEAD: Normocephalic. EYES: No scleral icterus. No injection or drainage. NECK: Supple, trachea midline. No JVD or lymphadenopathy. CARDIOVASCULAR: Regular rate and rhythm without murmurs, gallops, or rubs. RESPIRATORY: Breath sounds equal bilaterally. No accessory muscle use. GASTROINTESTINAL: Abdomen soft, non-tender, nondistended. Pelvic exam, limited : External exam no labial mass or tenderness at the introitus is a small/petit pea-sized area of tissue that is tender to palpation firm nonfluctuant with scant pink tinged mucus. No vesicles no ulcerations. Data Data Last Documented VS Vital Signs Date Time Temp Pulse Resp B/P (MAP) Pulse Ox O2 Delivery O2 Flow Rate FiO2 04/20/18 23:05 98.6 86 17 127/63 (84) 100 Orders Orders Ed Urine Pregnancytest Poc (04/20/18 23:28) MDM Medical Decision Making Medical Screen Exam Complete: Yes Emergency Medical Condition: Yes Medical Record Reviewed: Yes Interpretation(s) POC preg: positive Differential Diagnosis Cyst, abscess, mass, menses, Narrative Course [id number] test is positive We will discharge patient with prescription for Keflex is encouraged to follow- up closely with her HEEL SPLITTER and return immediately to the emergency department if any abnormal bleeding. Patient's last period was 1 month ago prior to that she had been off of control pills for approximately a week and prior to that had been on Depo-Provera injections for 6 months. Diagnosis Primary Impression: Labial cyst Additional Impression: Referrals: Photo Checker And Assembler call for appointment Patient Instructions: General Instructions Additional Instructions: Complete course of antibiotic Follow-up with education manager Take vitamins May take acetaminophen/Tylenol for discomfort or fever 100.4F or greater next return to the emergency department for concerns or change in condition Med/Other Pt SpecificInfo: Prescription(s) given Scripts Cephalexin (Keflex) 500 Mg Cap 500 MG PO Q8H for Infection, #21 CAP 0 Refills Prov: Maya Keene MD 04/20/18 Disposition: 01 DISCHARGE HOME Condition: Stable Maya Keene MD Apr 20, 2018 23:36
[2018-04-20] MEDS ORDERED: CEPH-460 PO (23:56)
== END 2018-04-21 00:02 | disposition home or self-care (01) ==
LOC: NEPC 22:53
DX: O26.891 Other specified pregnancy related conditions, first trimester (principal); N90.7 Vulvar cyst; Z34.91 Encounter for supervision of normal pregnancy, unspecified, first trimester
CPT/HCPCS: 84703; 99283